=== PATIENT | female | born 1930 | race Caucasian/White ===

== ENCOUNTER 2016-05-22 04:44 | Emergency (ER) | payer MEDICARE ==
[2016-05-22] MEDS ORDERED: Ondansetron INJ* 2 MG/ML VIAL IV ONE ×2 (05:31→08:11)
[2016-05-22] MEDS ORDERED: NS 0.9% 1000 ML* 1,000 ML IV ONE (05:31)
[2016-05-22 05:47] LABS: Comments Flag Yes; Hematocrit 42 % (35-47); Hemoglobin 14.1 g/dl (12.0-16.0); Mean Corpuscular HGB Conc 33 g/dl (31-36); Mean Corpuscular Hemoglobin 31 pg (27-31); Mean Corpuscular Volume 93 fL (80-97); Mean Platelet Volume 11 um3 (7.4-10.4); Red Blood Count 4.54 10^6/ul (4.0-5.4); Red Cell Distribution Width 13 % (10.5-15); White Blood Count 5.4 10^3/ul (3.5-10.8)
[2016-05-22 05:49] LABS: Add Diff/Slide Review? Slide Review Added
[2016-05-22 05:51] LABS: Urine Bilirubin Negative (Negative); Urine Glucose Negative (Negative); Urine Nitrite Negative (Negative)
[2016-05-22 06:02] LABS: ALT 24 U/L (7-52); Albumin 4.2 g/dL (3.2-5.2); Alkaline Phosphatase 62 U/L (34-104); BUN/Creatinine Ratio 20.5 (8-20); Blood Urea Nitrogen 17 mg/dL (6-24); CO2 Carbon Dioxide 24 mmol/L (22-32); Calcium 9.8 mg/dL (8.6-10.3); Chloride 102 mmol/L (101-111); EGFR Non-African American 65.3 (>60); Globulin 3.5 g/dL (2-4); Glucose 114 mg/dL (70-100); Sodium 135 mmol/L (133-145); Total Protein 7.7 g/dL (6.4-8.9)
[2016-05-22] MEDS ORDERED: Meclizine TAB* 12.5 MG PO ONE ×2 (06:32→08:11)
--- NOTE | 2016-05-22 06:32 | ED ---
Charlie Trevino Adam, scribed for Serafin Welsh MD on 05/22/16 at 0453 . Dizziness - HPI Summary HPI Summary: Pt is an 85 year old female presenting with dizziness which she believes is due to vertigo. The dizziness set on suddenly at 03:00 this morning. The pt states that she has had vertigo before but has never taken medicine for it. She states that she has done exercises to balance the fluids in her ears. Her last episode of vertigo was 2 years ago and she believes that she has it again now. Pt also c /o nausea associated with the dizziness. - History Of Current Complaint Stated Complaint: VERTIGO Hx Obtained From: Patient Onset/Duration: Suddenly Timing: Constant Severity Initially: Moderate Severity Currently: Moderate Character: Dizzy Aggravating Factor(s): Position Change Alleviating Factor(s): Nothing Associated Signs And Symptoms: Positive: Nausea - Allergies/Home Medications Allergies/Adverse Reactions: Allergies Allergy/AdvReac Type Severity Reaction Status Date / Time Penicillin G Allergy Intermediate Swelling Verified 10/27/14 18:00 PMH/Surg Hx/FS Hx/Imm Hx Endocrine/Hematology History: Denies: Hx Diabetes, Hx Sickle Cell Disease, Hx Thyroid Disease Cardiovascular History: Denies: Hx Hypertension Respiratory History: Denies: Hx Asthma, Hx Chronic Obstructive Pulmonary Disease (COPD), Other Respiratory Problems/Disorders GI History: Denies: Hx Ulcer, Other GI Disorders History: Denies: Other Problems/Disorders Musculoskeletal History: Reports: Hx Arthritis - FINGERS Sensory History: Reports: Hx Cataracts, Hx Contacts or Glasses Denies: Hx Hearing Aid Opthamlomology History: Reports: Hx Cataracts, Hx Contacts or Glasses Psychiatric History: Reports: Hx Anxiety - OCCASSIONALLY NO MEDICATION, Hx Depression - NO MEDICATION, ONLY OCCASSIONALLY NOT CHRONIC - Surgical History Surgery Procedure, Year, and Place: APPENDIX- 13 YRS OLD. LEFT EAR PINNED - 22 YRS OLD. WRIST SURGERY - 15 YRS AGO Hx Anesthesia Reactions: No - N/V WITH APPENDIX SURGERY DUE TO GAS Infectious Disease History: Denies: Hx Hepatitis, Hx Human Immunodeficiency Virus (HIV), History Other Infectious Disease - Family History Known Family History: Positive: Other - Negative: malignant hyperthermia, anesthesia reaction - Social History Occupation: Retired Lives: With Family - Same sex partner Alcohol Use: Occasionally Alcohol Amount: glas of wine about 7 times a month Hx Substance Use: No Substance Use Type: Reports: None Hx Tobacco Use: Yes Smoking Status (MU): Former Smoker Type: Cigarettes Have You Smoked in the Last Year: No Review of Systems Positive: Nausea Neurological: Other - Dizziness All Other Systems Reviewed And Are Negative: Yes Physical Exam Triage Information Reviewed: Yes Vital Signs On Initial Exam: Initial Vitals Temp Pulse Resp BP Pulse Ox 98.1 F 55 19 159/79 100 05/22/16 04:50 05/22/16 04:50 05/22/16 04:50 05/22/16 04:50 05/22/16 04:50 Vital Signs Reviewed: Yes Appearance: Positive: No Pain Distress, Thin Skin: Positive: Warm Eyes: Positive: EOMI, [place], Other: - no nystagmus ENT: Positive: Normal ENT inspection, Hearing grossly normal Neck: Positive: Supple Respiratory/Lung Sounds: Positive: Clear to Auscultation Cardiovascular: Positive: RRR Abdomen Description: Positive: Nontender, Soft Musculoskeletal: Positive: Strength/ROM Intact Neurological: Positive: Alert, Oriented to Person Place, Time Diagnostics - Vital Signs Vital Signs Temp Pulse Resp BP Pulse Ox 05/22/16 06:00 53 16 171/63 100 05/22/16 05:36 54 18 100 05/22/16 04:50 98.1 F 55 19 159/79 100 - Laboratory Lab Results: Lab Results 05/22/16 05/22/16 05/22/16 Range/Units 05:10 05:10 05:10 WBC 5.4 (3.5-10.8) 10^3/ul RBC 4.54 (4.0-5.4) 10^6/ul Hgb 14.1 (12.0-16.0) g/dl Hct 42 (35-47) % MCV 93 (80-97) fL MCH 31 (27-31) pg MCHC 33 (31-36) g/dl RDW 13 (10.5-15) % Plt Count 129 L (150-450) 10^3/ul MPV 11 H (7.4-10.4) um3 Neut % (Auto) 75.0 (38-83) % Lymph % (Auto) 13.0 L (25-47) % [place] % (Auto) 9.0 (1-9) % Eos % (Auto) 1.9 (0-6) % Baso % (Auto) 1.1 (0-2) % Absolute Neuts (auto) 4.0 (1.5-7.7) 10^3/ul Absolute Lymphs (auto) 0.7 L (1.0-4.8) 10^3/ul Absolute Monos (auto) 0.5 (0-0.8) 10^3/ul Absolute Eos (auto) 0.1 (0-0.6) 10^3/ul Absolute Basos (auto) 0.1 (0-0.2) 10^3/ul Absolute Nucleated RBC 0.01 10^3/ul Nucleated RBC % 0.1 Sodium 135 (133-145) mmol/L Potassium TNP Chloride 102 (101-111) mmol/L Carbon Dioxide 24 (22-32) mmol/L Anion Gap TNP BUN 17 (6-24) mg/dL Creatinine 0.83 (0.51-0.95) mg/dL Est GFR ( Amer) 84.0 (>60) Est GFR (Non-Af Amer) 65.3 (>60) BUN/Creatinine Ratio 20.5 H (8-20) Glucose 114 H (70-100) mg/dL Calcium 9.8 (8.6-10.3) mg/dL Magnesium TNP Total Bilirubin 0.50 (0.2-1.0) mg/dL AST TNP ALT 24 (7-52) U/L Alkaline Phosphatase 62 (34-104) U/L Troponin I 0.00 (<0.04) ng/mL Total Protein 7.7 (6.4-8.9) g/dL Albumin 4.2 (3.2-5.2) g/dL Globulin 3.5 (2-4) g/dL Albumin/Globulin Ratio 1.2 (1-3) Urine Color Straw Urine Appearance Clear Urine pH 8.0 (5-9) Ur Specific [place] 1.008 L (1.010-1.030) Urine Protein Negative (Negative) Urine Ketones Trace H (Negative) Urine Blood Negative (Negative) Urine Nitrate Negative (Negative) Urine Bilirubin Negative (Negative) Urine Urobilinogen Negative (Negative) Ur Leukocyte Esterase Negative (Negative) Urine Glucose Negative (Negative) Urine Ascorbic Acid * H (Negative) Result Diagrams: 05/22/16 05:10 05/22/16 05:10 Lab Statement: Any lab studies that have been ordered have been reviewed, and results considered in the medical decision making process. - EKG 05:21 Cardiac Rate: Bradycardia - 52 BPM EKG Rhythm: Sinus Bradycardia Re-Evaluation - Re-Evaluation First Eval Change: Improved Dizzy Course/Dx - Diagnoses Provider Diagnoses: Vertigo Discharge - Discharge Plan Condition: Improved Disposition: HOME Prescriptions: Meclizine TAB* [Antivert 12.5 TAB*] 25 mg PO TID #14 tab The documentation as recorded by the Charlie garay Adam accurately reflects the service I personally performed and the decisions made by me, Serafin Welsh MD.
[2016-05-22 07:36] LABS: Magnesium 1.9 mg/dL (1.9-2.7)
[2016-05-22 09:59] VITALS: BP 140/56
== END 2016-05-22 09:57 | disposition home or self-care (01) ==
LOC: ED 04:44
DX: R42 Dizziness and giddiness (principal); R11.0 Nausea; Z87.891 Personal history of nicotine dependence
CPT/HCPCS: 36415; 80053; 81003; 83735; 84484; 85025; 93005; 96374; 96375; 99283; A9270-GY; J2405

== ENCOUNTER 2017-03-11 07:07 | Observation (INO) | payer MEDICARE ==
[2017-03-11 08:42] LABS: ABS Basophils 0 10^3/ul (0-0.2); ABS Eosinophils 0 10^3/ul (0-0.6); ABS Lymphocytes 0.4 10^3/ul (1.0-4.8); ABS Monocytes 0.6 10^3/ul (0-0.8); ABS Neutrophils 5.9 10^3/ul (1.5-7.7); ABS Nucleated RBC 0.04 10^3/ul; Eosinophil % 0.6 % (0-6); Hematocrit 40 % (35-47); Hemoglobin 13.7 g/dl (12.0-16.0); Lymphocyte % 6.2 % (25-47); Mean Corpuscular HGB Conc 34 g/dl (31-36); Mean Corpuscular Hemoglobin 32 pg (27-31); Mean Corpuscular Volume 94 fL (80-97); Mean Platelet Volume 10 um3 (7.4-10.4); Nucleated Red Blood Cells % 0.6; Platelet Count 141 10^3/ul (150-450); Red Blood Count 4.26 10^6/ul (4.0-5.4); Red Cell Distribution Width 14 % (10.5-15)
[2017-03-11 08:48] LABS: Urine Appearance Clear; Urine Blood Negative (Negative); Urine Color Straw; Urine Ketones Negative (Negative); Urine Protein Negative (Negative); Urine Specific Gravity 1.003 (1.010-1.030); Urine Urobilinogen Negative (Negative)
[2017-03-11 08:55] LABS: INR 0.86 (0.77-1.02)
[2017-03-11 08:56] LABS: EGFR Non-African American 79.3 (>60)
--- NOTE | 2017-03-11 09:08 | RAD ---
INDICATION: Fall and vertigo COMPARISON: CT of the brain January 14, 2014 TECHNIQUE: Contiguous axial sections of the brain were obtained from the skull base to the vertex without contrast. FINDINGS: The ventricles, cisterns and sulci mild involutional changes similar in appearance to the prior CT examination. There is mild periventricular and subcortical white matter hypoattenuation most consistent with mild chronic microvascular disease. The ambriz-white matter differentiation is adequately maintained and there is no sulcal effacement. No significant focal abnormality or mass effect is present. There is no evidence for intracranial hemorrhage. No significant focal osseous abnormality is present. The visualized portion of the paranasal sinuses and mastoid air cells appear clear. IMPRESSION: Chronic findings described above without acute intracranial hemorrhage or calvarial fracture.
--- NOTE | 2017-03-11 09:15 | RAD ---
INDICATION: Fell and struck head. Chronic low back pain at baseline with increased RIGHT lower back and hip pain post fall. COMPARISON: June 13, 2016 CT abdomen pelvis and January 14, 2014 chest radiograph. November 21, 2006 chest radiograph. TECHNIQUE: Multidetector CT images were obtained from the lung apices to the ischial tuberosities without contrast. Multiplanar bone algorithm reformatted images of the thoracic and lumbar sacral spine. Assessment of the viscera limited without contrast. CHEST REPORT: Panlobular emphysema. Mild foci of predominant basilar bilateral pleural-parenchymal scarring. 3 mm noncalcified nodule RIGHT upper lobe image 17. Negative for pleural effusion or pneumothorax. Negative for mediastinal hematoma, thoracic lymphadenopathy, or cardiomegaly. Physiologic small volume of pericardial fluid. Normal diameter thoracic aorta with calcific plaque. Coronary artery calcifications. Moderate anterior and middle column compression deformity of the T8 vertebral body while new compared with the prior chest radiograph appears chronic without discrete cortical disruption or gross trabecular impaction. No acute thoracic fractures evident. Increased thoracic kyphosis. CHEST IMPRESSION: 1. No acute traumatic thoracic injury evident. 2. Advanced emphysema. Noted 3 mm nodule at the RIGHT upper lobe is relatively low suspicion given small size. Consider reassessment with noncontrast CT in 6 months. ABDOMEN PELVIS REPORT: No CT abnormality of the unenhanced liver, gallbladder, pancreas, or spleen. No CT abnormality of the upper GI or small bowel evident. While the appendix is not discretely visualized, there is no inflammatory change in the right lower quadrant or region of the tip of the cecum to suggest presence of an acute inflammatory process. Colonic diverticulosis most marked at the RIGHT colon without findings of acute diverticulitis. Negative for ascites, free air, Unremarkable adrenal glands. Normal variant extrarenal pelves. Negative for hydronephrosis, urolithiasis, or focal renal lesions. No suspicious finding along the course of the ureters. Unremarkable partially distended urinary bladder. Uterus appears atrophic. Unremarkable adnexal regions. Negative for lymphadenopathy. Atherosclerotic plaque of normal diameter abdominal aorta and iliac arteries. Negative for retroperitoneal or superficial soft tissue hematoma. Mild acute appearing predominant anterior greater than the middle column osteoporotic compression fracture at L1 involving the inferior endplate. Approximate 2 mm retropulsion of the middle column without resulting central canal stenosis. No paravertebral hematoma evident. No additional fractures of the lumbar sacral spine, pelvis, or proximal femurs evident. 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 Disc space narrowing is severe at L5-S1. Mild bilateral foraminal stenosis at L5-S1. ABDOMEN PELVIS IMPRESSION: 1. No evidence for traumatic abdominal pelvic visceral injury within limits of noncontrast CT. 2. Mild acute appearing predominant anterior greater than the middle column osteoporotic compression fracture at L1 involving the inferior endplate. Approximate 2 mm retropulsion of the middle column without resulting central canal stenosis. No paravertebral hematoma evident. No additional fractures of the lumbar sacral spine, pelvis, or proximal femurs evident. Results discussed with Dr. Conroy 03/11/2017 9:10 AM EST
[2017-03-11] MEDS: NS 0.9% 1000 ML* 1,000 ML IV SCH ×2 (10:00→18:44)
--- NOTE | 2017-03-11 10:21 | RAD ---
Indication: Right fourth finger injury. 3 views of the right fifth finger demonstrates question of a nondisplaced fracture through the midportion of the distal phalanx of the fourth digit. Soft tissue swelling at the proximal interphalangeal joint is noted. IMPRESSION: Question of a nondisplaced fracture in the distal phalanx of the ring finger. Clinical correlation is suggested.
--- NOTE | 2017-03-11 11:54 | RAD ---
Indication: Fall with L1 compression fracture. Comparison: March 11, 2017 CT. Technique: Standing AP and lateral views lumbar sacral spine. Report: Mild anterior and middle column compression deformity at L1 with approximate 30% loss of height at the anterior column appears unchanged compared with the CT of the same date. No additional fractures evident. Normal lumbar lordosis. Slight RIGHT convex curve centered at L1. Unremarkable paravertebral soft tissue contours. IMPRESSION: Mild anterior and middle column compression deformity at L1 with approximate 30% loss of height at the anterior column appears unchanged compared with the CT of the same date.
[2017-03-11] MEDS ORDERED: Ibuprofen TAB* 200 MG PO ONE (14:00)
[2017-03-11] MEDS ORDERED: Ibuprofen TAB* 600 MG PO PRN (14:26)
[2017-03-11] MEDS ORDERED: traMADol TAB* 50 MG PO PRN (14:27)
[2017-03-11] MEDS ORDERED: oxyCODONE/Acetamin 5/325 MG* TAB PO PRN (14:27)
[2017-03-11] MEDS ORDERED: Senna TAB PO PRN (14:31)
[2017-03-11] MEDS ORDERED: Bisacodyl SUPP* 10 MG SUPP PR PRN (14:32)
[2017-03-11] MEDS ORDERED: Docusate CAP* 100 MG PO PRN (14:32)
[2017-03-11] MEDS: traMADol TAB* 50 MG PO PRN (16:51)
[2017-03-11] MEDS: Sulfamethox/Trimethoprim DS 800/160* TAB PO SCH ×2 (16:51→20:47)
--- NOTE | 2017-03-11 18:26 | ED ---
Lonnie Trevino Abhishek, scribed for Sven Conroy MD on 03/11/17 at 0758 . Complex/Multi-Sys Presentation - HPI Summary HPI Summary: This patient is a 86 year old F presenting to [facility] accompanied by female with a c/o of back pain, hip pain and hand pain s/p fall since 0430 today (03/11/17) . Patient is A/O times 3. The mechanism of injury as described by the patient was a fall on the right side in the kitchen from a standing height (no ambulation) when turning to the sink. The fall was also described as sudden and straight down. Pt has pertinent PMHx of vertigo and back pain (pt has a back brace). Pt had taken ibuprofen at 0500. The patient rates the pain 10/10 in severity. Symptoms aggravated by nothing. Symptoms alleviated by ibuprofen. Patient reports vertigo, ecchymosis on her left hand (ring finger), and dehydration. Patient denies LOC, dizziness, room spinning, and syncope, Other medications the Pt also takes are enzymes for digestion, and electrolytes. - History Of Current Complaint Chief Complaint: EDExtremityUpper Hx Obtained From: Patient, Family/Dispute Specialist Onset/Duration: Sudden Onset - hip pain/hand pain/back pain s/p fall at 0430 today (03/11/17) Severity Currently: Severe Severity Initially: Severe Location: Pain At: - hip, back and hand s/p fall Aggravating Factor(s): nothing Alleviating Factor(s): nothing Associated Signs And Symptoms: Positive: Edema, Back Pain, Other - Vertigo and Negative room spinning. Negative: Dizziness, Syncope - Allergies/Home Medications Allergies/Adverse Reactions: Allergies Allergy/AdvReac Type Severity Reaction Status Date / Time Penicillin G Allergy Intermediate Swelling Verified 06/13/16 09:51 PMH/Surg Hx/FS Hx/Imm Hx Endocrine/Hematology History: Denies: Hx Diabetes, Hx Sickle Cell Disease, Hx Thyroid Disease Cardiovascular History: Denies: Hx Hypertension Respiratory History: Denies: Hx Asthma, Hx Chronic Obstructive Pulmonary Disease (COPD), Other Respiratory Problems/Disorders GI History: Denies: Hx Ulcer, Other GI Disorders History: Denies: Other Problems/Disorders Musculoskeletal History: Reports: Hx Arthritis - FINGERS Sensory History: Reports: Hx Cataracts, Hx Contacts or Glasses Denies: Hx Hearing Aid Opthamlomology History: Reports: Hx Cataracts, Hx Contacts or Glasses Psychiatric History: Reports: Hx Anxiety - OCCASSIONALLY NO MEDICATION, Hx Depression - NO MEDICATION, ONLY OCCASSIONALLY NOT CHRONIC - Surgical History Surgery Procedure, Year, and Place: APPENDIX- 13 YRS OLD. LEFT EAR PINNED - 22 YRS OLD. WRIST SURGERY - 15 YRS AGO. BILAT CATERACTS Hx Anesthesia Reactions: No - N/V WITH APPENDIX SURGERY DUE TO GAS Infectious Disease History: No Infectious Disease History: Denies: Hx Hepatitis, Hx Human Immunodeficiency Virus (HIV), History Other Infectious Disease, Traveled Outside the [place] in Last 30 Days - Family History Known Family History: Positive: Cardiac Disease, Other - Negative: malignant hyperthermia, anesthesia reaction Negative: Diabetes - Social History Occupation: Retired Lives: With Family - With partner Alcohol Use: Rare Alcohol Amount: glas of wine about 7 times a month Hx Substance Use: No Substance Use Type: Reports: None Hx Tobacco Use: Yes Smoking Status (MU): Former Smoker Type: Cigarettes Amount Used/How Often: dates are estimates Have You Smoked in the Last Year: No Review of Systems Constitutional: Negative Eyes: Negative ENT: Negative Cardiovascular: Negative Respiratory: Negative Gastrointestinal: Negative Genitourinary: Negative Positive: Myalgia - hip, hand and back pain s/p fall Positive: Bruising - left hand ("ring finger") Neurological: Other - Vertigo. Negative dizziness, and room spinning Negative: Syncope Psychological: Normal All Other Systems Reviewed And Are Negative: Yes Physical Exam - Summary Physical Exam Summary: General: well-appearing, no pain distress Skin: warm, color reflects adequate perfusion, dry, ecchymosis on the distal right 4th finger Head: normal Eyes: EOMI, [place] ENT: normal Neck: supple, nontender Respiratory: CTA, breath sounds present Cardiovascular: RRR Abdomen: soft, nontender Bowel: present Musculoskeletal: Lower back facer to palpation, and right posterior chest tender to palpation. Neurological: normal, sensory/motor intact, A&O x3 Psychological: affect/mood appropriate Triage Information Reviewed: Yes Vital Signs On Initial Exam: Initial Vitals Temp Pulse Resp BP Pulse Ox 98.7 F 60 16 158/85 99 03/11/17 07:12 03/11/17 07:12 03/11/17 07:12 03/11/17 07:12 03/11/17 07:12 Vital Signs Reviewed: Yes - [place] Coma Scale Coma Scale Total: 15 Diagnostics - Vital Signs Vital Signs Temp Pulse Resp BP Pulse Ox 03/11/17 07:12 98.7 F 60 16 158/85 99 - Laboratory Lab Results: Lab Results 03/11/17 03/11/17 03/11/17 Range/Units 08:15 08:31 08:31 WBC (3.5-10.8) 10^3/ul RBC (4.0-5.4) 10^6/ul Hgb (12.0-16.0) g/dl Hct (35-47) % MCV (80-97) fL MCH (27-31) pg MCHC (31-36) g/dl RDW (10.5-15) % Plt Count (150-450) 10^3/ul MPV (7.4-10.4) um3 Neut % (Auto) (38-83) % Lymph % (Auto) (25-47) % [place] % (Auto) (1-9) % Eos % (Auto) (0-6) % Baso % (Auto) (0-2) % Absolute Neuts (auto) (1.5-7.7) 10^3/ul Absolute Lymphs (auto) (1.0-4.8) 10^3/ul Absolute Monos (auto) (0-0.8) 10^3/ul Absolute Eos (auto) (0-0.6) 10^3/ul Absolute Basos (auto) (0-0.2) 10^3/ul Absolute Nucleated RBC 10^3/ul Nucleated RBC % INR (Anticoag Therapy) (0.77-1.02) APTT (26.0-36.3) seconds Sodium 135 (133-145) mmol/L Potassium 3.5 (3.5-5.0) mmol/L Chloride 98 L (101-111) mmol/L Carbon Dioxide 30 (22-32) mmol/L Anion Gap 7 (2-11) mmol/L BUN 16 (6-24) mg/dL Creatinine 0.70 (0.51-0.95) mg/dL Est GFR ( Amer) 102.0 (>60) Est GFR (Non-Af Amer) 79.3 (>60) BUN/Creatinine Ratio 22.9 H (8-20) Glucose 87 (70-100) mg/dL Lactic Acid (0.5-2.0) mmol/L Calcium 9.9 (8.6-10.3) mg/dL Magnesium 2.1 (1.9-2.7) mg/dL Total Bilirubin 0.50 (0.2-1.0) mg/dL AST 30 (13-39) U/L ALT 32 (7-52) U/L Alkaline Phosphatase 84 (34-104) U/L Troponin I 0.00 (<0.04) ng/mL C-Reactive Protein 18.49 H (< 5.00) mg/L B-Natriuretic Peptide 192 H ( - 100) pg/mL Total Protein 6.8 (6.4-8.9) g/dL Albumin 3.7 (3.2-5.2) g/dL Globulin 3.1 (2-4) g/dL Albumin/Globulin Ratio 1.2 (1-3) Lipase 178 H (11.0-82.0) U/L TSH 1.88 (0.34-5.60) mcIU/mL Urine Color Straw Urine Appearance Clear Urine pH 7.0 (5-9) Ur Specific [place] 1.003 L (1.010-1.030) Urine Protein Negative (Negative) Urine Ketones Negative (Negative) Urine Blood Negative (Negative) Urine Nitrate Negative (Negative) Urine Bilirubin Negative (Negative) Urine Urobilinogen Negative (Negative) Ur Leukocyte Esterase 3+ H (Negative) Urine WBC (Auto) 3+(>20/hpf) H (Absent) Urine RBC (Auto) 1+(3-5/hpf) H (Absent) Urine Bacteria 2+ H (Absent) Urine Glucose Negative (Negative) 03/11/17 03/11/17 03/11/17 Range/Units 08:31 08:31 08:34 WBC 7.0 (3.5-10.8) 10^3/ul RBC 4.26 (4.0-5.4) 10^6/ul Hgb 13.7 (12.0-16.0) g/dl Hct 40 (35-47) % MCV 94 (80-97) fL MCH 32 H (27-31) pg MCHC 34 (31-36) g/dl RDW 14 (10.5-15) % Plt Count 141 L (150-450) 10^3/ul MPV 10 (7.4-10.4) um3 Neut % (Auto) 84.7 H (38-83) % Lymph % (Auto) 6.2 L (25-47) % [place] % (Auto) 8.1 (1-9) % Eos % (Auto) 0.6 (0-6) % Baso % (Auto) 0.4 (0-2) % Absolute Neuts (auto) 5.9 (1.5-7.7) 10^3/ul Absolute Lymphs (auto) 0.4 L (1.0-4.8) 10^3/ul Absolute Monos (auto) 0.6 (0-0.8) 10^3/ul Absolute Eos (auto) 0 (0-0.6) 10^3/ul Absolute Basos (auto) 0 (0-0.2) 10^3/ul Absolute Nucleated RBC 0.04 10^3/ul Nucleated RBC % 0.6 INR (Anticoag Therapy) 0.86 (0.77-1.02) APTT 23.6 L (26.0-36.3) seconds Sodium (133-145) mmol/L Potassium (3.5-5.0) mmol/L Chloride (101-111) mmol/L Carbon Dioxide (22-32) mmol/L Anion Gap (2-11) mmol/L BUN (6-24) mg/dL Creatinine (0.51-0.95) mg/dL Est GFR ( Amer) (>60) Est GFR (Non-Af Amer) (>60) BUN/Creatinine Ratio (8-20) Glucose (70-100) mg/dL Lactic Acid 0.6 (0.5-2.0) mmol/L Calcium (8.6-10.3) mg/dL Magnesium (1.9-2.7) mg/dL Total Bilirubin (0.2-1.0) mg/dL AST (13-39) U/L ALT (7-52) U/L Alkaline Phosphatase (34-104) U/L Troponin I (<0.04) ng/mL C-Reactive Protein (< 5.00) mg/L B-Natriuretic Peptide ( - 100) pg/mL Total Protein (6.4-8.9) g/dL Albumin (3.2-5.2) g/dL Globulin (2-4) g/dL Albumin/Globulin Ratio (1-3) Lipase (11.0-82.0) U/L TSH (0.34-5.60) mcIU/mL Urine Color Urine Appearance Urine pH (5-9) Ur Specific [place] (1.010-1.030) Urine Protein (Negative) Urine Ketones (Negative) Urine Blood (Negative) Urine Nitrate (Negative) Urine Bilirubin (Negative) Urine Urobilinogen (Negative) Ur Leukocyte Esterase (Negative) Urine WBC (Auto) (Absent) Urine RBC (Auto) (Absent) Urine Bacteria (Absent) Urine Glucose (Negative) Result Diagrams: 03/11/17 08:34 03/11/17 08:31 Lab Statement: Any lab studies that have been ordered have been reviewed, and results considered in the medical decision making process. - Radiology Finger X-ray Radiology Interpretation Completed By: Radiologist - Finger X ray reveals Question of a nondisplaced fracture in the distal phalanx of the ring finger. Clinical correlation is suggested. ED physician has reviewed this radiology report. Lumbar Spine X-ray Radiology Interpretation Completed By: Radiologist - Lumbar Spine X-ray Mild anterior and middle column compression deformity at L1 with approximate 30% loss of height at the anterior column appears unchanged compared with the CT of the same date. ED physician reviewed the radiology report. - CT Chest A/P CT CT Interpretation Completed By: Radiologist - Chest A/P Ct reveals Chest impression 1. No acute traumatic thoracic injury evident. 2. Advanced emphysema. Noted 3 mm nodule at the RIGHT upper lobe is relatively low suspicion given small size. Consider reassessment with noncontrast CT in 6 months. 1. No evidence for traumatic abdominal pelvic visceral injury within limits of noncontrast CT. 2. Mild acute appearing predominant anterior greater than the middle column osteoporotic compression fracture at L1 involving the inferior endplate. Approximate 2 mm retropulsion of the middle column without resulting central canal stenosis. No paravertebral hematoma evident. No additional fractures of the lumbar sacral spine, pelvis, or proximal femurs evident. ED physician has reviewed this radiology report. Brain CT CT Interpretation Completed By: Radiologist - Brain CT Reveals Chronic findings described above without acute intracranial hemorrhage or calvarial fracture. ED physician has reviewed this radiology report. Complex Multi-Symp Course/Dx Course Of Treatment: DISCUSSED WITH NEUROSURGERY, DR SANCHEZ. PATIENT NOT TOLERATING BACK PAIN; ADMIT HOSPITALIST. - Diagnoses Provider Diagnoses: Compression fracture of L1 lumbar vertebra, Fracture of phalanx of right ring finger Discharge - Discharge Plan Condition: Stable Disposition: ADMITTED TO [facility] The documentation as recorded by the Lonnie garay Abhishek accurately reflects the service I personally performed and the decisions made by me, Sven Conroy MD.
[2017-03-11] MEDS: Heparin VIAL(*) 5000 UNITS/ML VIAL (FIVE THOUSAND) SUBCUT SCH (20:48)
--- NOTE | 2017-03-11 22:15 | HP ---
CC: Dr. Good * [facility] MEDICINE HISTORY AND PHYSICAL: DATE OF ADMISSION: 03/11/17 PRIMARY CARE PROVIDER: Dr. Good. ATTENDING PHYSICIAN: Sandro Guerrero MD * (dictation provided by Lizzeth Cueva NP) CHIEF COMPLAINT: Low back pain. HISTORY OF PRESENT ILLNESS: Ms. Black is an 86-year-old female with a past medical history of intermittent vertigo, scoliosis with intermittent back pain, urinary incontinence, and PACs who presented to the hospital today after a fall at home with back pain. Ms. Black states that she strained her back about 3 months ago. She had recovered somewhat from that and started to do pelvic floor physical therapy for urinary incontinence. She has seen pelvic floor PT about 3 to 4 times. After her last visit, she was working on her Kegel exercises and developed low back pain again. She states the pain has been quite significant. She has been taking ibuprofen at 200 to 400 mg p.o. q. 6 hours p.r.n. with some minimal improvement in the pain. This morning, at about 4:30 a.m., she got up to take ibuprofen. She was standing at the sink when she suddenly found herself on the ground. She is not sure exactly why she fell. She denies losing consciousness. She landed on her right side and had immediate pain in her back and in her right hand. She denies any recent fevers , chills, cough, chest pain, or shortness of breath. She has had urinary incontinence with about 2 to 3 episodes per day. She describes an urge incontinence. She had not noticed any dysuria or new worsening frequency. She has noticed some lower extremity swelling, which has been going on for several months. She has had some lower abdominal discomfort and had workup with Dr. Good and Dr. Russo from [facility]. Dr. Russo felt that her discomfort was related to constipation. She has been using suppositories intermittently for that as well as magnesium citrate. In the emergency room, Ms. Black had multiple imaging studies which all showed that she had an L1 compression fracture and a right ring finger nondisplaced fracture. Her labs were unremarkable except to show that she likely has a urinary tract infection with 3+ leuk esterase and 2+ bacteria. Her vitals were stable. PAST MEDICAL HISTORY: 1. Vertigo status post vestibular therapy with improvement. 2. Scoliosis with chronic back pain. 3. Urinary incontinence, likely urge. 4. Balance issues related to vertigo. 5. History of frequent UTIs. 6. Right wrist fracture with pinning. 7. History of PACs. 8. Diverticulosis. MEDICATIONS: The patient states she takes supplements only and they are vitamin C, vitamin D, B12, B complex, vitamin E, and magnesium. She is also a vegetarian. ALLERGIES: PENICILLIN G. FAMILY HISTORY: Mother of heart disease. Father of an aneurysm. SOCIAL HISTORY: The patient states she smoked about 10 years and quit at age 30. She denies any alcohol or drug use. She lives with her partner, Ed, who is the healthcare proxy. REVIEW OF SYSTEMS: A 14-point review of systems was completed with Ms. Black and all those not mentioned above were negative. PHYSICAL EXAMINATION GENERAL: Ms. Black is lying in the bed. She is in no acute distress. VITAL SIGNS: Temperature 98.7, pulse rate 69, respiratory rate 22, O2 saturation 98% on room air, blood pressure 152/79. LUNGS: Clear to auscultation bilaterally with no accessory muscle use and good aeration. HEART: S1, S2. No murmur, rub, or gallop, and regular. ABDOMEN: Soft, nontender with bowel sounds positive x4. EXTREMITIES: No cyanosis. Positive for trace to 1+ pitting edema in the ankles. NEURO: She is alert, she is oriented x3. She moves all extremities equally. There is no facial asymmetry or focal weakness. DTR are intact. Babinski intact bilaterally. Extraocular movements are intact. She has no tenderness to palpation over the lumbar or thoracic spine. DIAGNOSTIC STUDIES/LAB DATA: WBC 7.0, hemoglobin 13.7, hematocrit 40, and platelet count 141. INR 0.86. Sodium 135, potassium 3.5, chloride 98, serum bicarbonate 30, BUN 16, creatinine 0.70, glucose 87, troponin 0.00. CRP 18.49. BNP 192, lipase 178. IMAGING: CT brain is read as follows: "Chronic findings described above without acute intracranial hemorrhage or calvarial fracture." Cervical spine CT , chest, abdomen, pelvis CT, lumbar spine CT, thoracic spine CT, are summarized as follows: "No acute traumatic thoracic injury evident, advanced emphysema, noted 3 mm nodule at the right upper lobe. It is relatively low suspicion given small size. Consider reassessment with noncontrast CT in 6 months. No evidence for traumatic abdominal or pelvic visceral injury within limits of noncontrast CT. Mild acute appearing predominant anterior greater than middle column osteoporotic compression fracture at L1 involving the inferior endplate, approximately 2 mm retropulsion of the middle column without resulting central canal stenosis. No paravertebral hematoma evident. No additional fractures of the lumbosacral spine, pelvis, or proximal femurs are evident." Lumbar spine x- ray: "Mild anterior and middle column compression deformity at L1 with approximately 30% loss of height at the anterior column, appears unchanged compared with CT of the same date." ASSESSMENT AND PLAN: Ms. Black is an 86-year-old female with a past medical history of scoliosis with chronic back pain, intermittent vertigo, and urinary incontinence who presents today to hospital with concerns for fall and back pain found to have L1 compression fracture, right ring finger fracture, and likely urinary tract infection. Our plans are for observation in the hospital for the followin. Compression fracture with back pain: The patient is unable to ambulate in the emergency room. Our plans are to begin step-velázquez approach for her pain control. Plan to start with tramadol 50 mg and then increase to tramadol 100 mg and then to oxycodone with acetaminophen if needed. The patient will have physical therapy. The emergency room physicians did review the scan and plan with Dr. Martinez who recommend the patient could try a TLSO brace. I have spoken with [facility] orthotics and case management to order a brace today. 2. Urinary tract infection: The patient's UA shows positive leuk esterase and bacteria. Plan for Bactrim b.i.d. and to montor urine cultures. 3. Lower extremity edema: The patient had question about lower extremity edema , it is trace and has been chronic for several months at least. I explained to her this can be a feature of aging with venous insufficiency as well as diastolic heart failure and recommended that she will follow up with Dr. Good if she has any continued concerns about this. She is also recommended to elevate lower extremities and use compression stockings p.r.n. 4. Lower abdominal pain: The patient reports she has had some intermittent lower abdominal pain for at least 5 or 6 months, but seems like this has been going on for most of her life. She has seen Dr. Good and Dr. Russo from gastro -enterology at [place] . Dr. Good thought perhaps she had chronic pancreatitis. I do note that her lipase is elevated today and I am rechecking that in the a.m. Her LFTs are normal. I note that she has had mildly elevated lipase in the past as well. Her abdominal pain is actually described is in the lower abdomen along the right side. It is intermittent and seems to be more associated with constipation and bowel movements. Plan to obtain records from [place] from Dr. Russo and to follow up on the lipase as indicated. 5. DVT prophylaxis: Lovenox. 6. Code status is full code. TIME SPENT: Approximately 75 minutes was spent on the admission of this patient , more than half of that time was spent with the patient at bedside reviewing the events leading up to this hospitalization, performing the physical examination, and reviewing my plan of care. LIZZETH CUEVA NP [id number]/[facility] #: [id number] [place]
--- NOTE | 2017-03-12 02:03 | CONS ---
CONSULTATION REPORT: DATE OF CONSULT: 03/11/17 HISTORY OF PRESENT ILLNESS: The patient is a very pleasant 86-year-old female with history of anxiety, cataracts, and arthritis who was reported to have sustained a fall from a standing position yesterday. The patient reports that she did not lose consciousness. We have requested to see the patient by ED physician regarding CT scan finding consistent with possible anterior and medial column compression fracture of L1 without evidence of canal compromise. The patient reports that her back pain has significantly improved since her admission. She does have reports of fracture on the right 4th finger. The patient reports that she has a history of bladder incontinence, but no bowel incontinence. She denies any weakness, numbness, or tingling of the upper or lower extremities with the exception of chronic weakness on the lower extremities. She was diagnosed with previous thoracic compression fracture in the past and she reports that she had another fracture a couple of months ago when she was trying to lift some weight. History was obtained from the patient' s record, the patient herself, as well as a female friend of hers at the bedside. PAST MEDICAL HISTORY: History of anxiety, cataract, arthritis. PAST SURGICAL HISTORY: Appendectomy. MEDICATIONS: Not on home medication. ALLERGIES: PENICILLIN. SOCIAL HISTORY: Tobacco negative, the patient quit several years ago. Alcohol , negative. Recreational drug use, negative. The patient used to work as an artist. She lives with her female partner. PHYSICAL EXAMINATION: The patient is not in acute distress. She is awake, alert, oriented x3. Her pupils are equal and reactive. Cranial nerves II through XII are grossly intact. Motor 4-5/5 in all extremities. Sensory grossly intact to light touch. Deep tendon reflexes +1 bilaterally. No clonus. No Babinski. Homans' negative. Straight leg test negative in the supine position. The patient has no tenderness to palpation on cervical , thoracic, or lumbar spine. She has free range of motion of cervical spine. She does have significant kyphosis in the thoracic spine. DIAGNOSTIC STUDIES: The patient had a CT scan of the brain that does not reveal evidence of intracranial hemorrhage. The patient had a CT scan of the cervical spine, revealed degenerative disk disease without evidence of fracture or subluxation. The patient had a CT scan of the thoracic spine revealing old wedge compression fracture at T8 with significant kyphosis. The patient had a CT scan of the lumbar spine revealing possible anterior and medial column L1 compression fracture with questionable 2 mm retropulsion in the inferoposterior vertebral body edge. No evidence of posterior ligament complex involvement. The patient had upright x-rays that revealed similar findings on the lumbar spine with anterior wedge deformity at L1 with similar appearance with the CT findings. ASSESSMENT: She is a very pleasant 86-year-old female with reported fall and lumbar 1 anterior compression fracture. PLAN: The patient at this point has been doing quite well. She was able to ambulate with a walker and her pain is under control. Based on her imaging and the clinical presentation, we think conservative treatment will be the best option. We would suggest that the patient may benefit from a thoracolumbar orthosis if tolerated. The patient may follow up with her primary physician and we will be happy to see the patient in the office in 2 weeks with a new x-ray of lumbar spine if it is desired by her PCP. We would recommend osteoporosis management and fall precautions. Full instructions given to the patient and her friend. Thank you for allowing us to participate in the care of this patient. Please do not hesitate to contact our office in case if you have any questions or concerns regarding the care of this patient. Josh Martinez MD [id number]/[facility] #: [id number] MTDD
[2017-03-12] MEDS: NS 0.9% 1000 ML* 1,000 ML IV SCH (02:39)
[2017-03-12] MEDS: Heparin VIAL(*) 5000 UNITS/ML VIAL (FIVE THOUSAND) SUBCUT SCH ×3 (05:52→14:18)
--- NOTE | 2017-03-12 07:31 | PN ---
Subjective Date of Service: 03/12/17 Interval History: States that she is feeling better today. States that she did well with PT aqnd would like to return home. Reports that she has help at home. Would like to have hospital bed ordered for home. Objective Active Medications: Bisacodyl (Dulcolax Supp*) 10 mg WA DAILY PRN PRN Reason: CONSTIPATION Docusate Sodium (Colace Cap*) 100 mg PO DAILY PRN PRN Reason: CONSTIPATION Heparin Sodium (Porcine) (Heparin Vial(*)) 5,000 units SUBCUT Q8HR COUNTS INCLUDE 234 BEDS AT THE [facility] Last Admin: 03/12/17 05:59 Dose: 5,000 units Sodium Chloride (Ns 0.9% 1000 Ml*) 1,000 mls @ 150 mls/hr IV PER RATE COUNTS INCLUDE 234 BEDS AT THE [facility] Last Admin: 03/12/17 02:39 Dose: 150 mls/hr Ibuprofen (Motrin Tab*) 600 mg PO Q6H PRN PRN Reason: PAIN Last Admin: 03/11/17 14:35 Dose: 600 mg Oxycodone/Acetaminophen (Percocet 5/325 Tab*) 1 tab PO Q4H PRN PRN Reason: SEVERE PAIN Senna (Senokot Tab*) 1 tab PO BEDTIME PRN PRN Reason: CONSTIPATION Tramadol HCl (Ultram*) 50 mg PO Q6H PRN PRN Reason: PAIN Last Admin: 03/11/17 16:51 Dose: 50 mg Tramadol HCl (Ultram*) 100 mg PO Q6H PRN PRN Reason: moderate pain Trimethoprim/Sulfamethoxazole (Bactrim Ds 800/160 Tab*) 1 tab PO BID COUNTS INCLUDE 234 BEDS AT THE [facility] Last Admin: 03/11/17 20:47 Dose: 1 tab Vital Signs - 8 hr 03/11/17 03/12/17 23:41 03:40 Temperature 97.6 F 97.7 F Pulse Rate 53 61 Respiratory 16 16 Rate Blood Pressure 150/89 169/72 (mmHg) O2 Sat by Pulse 96 95 Oximetry Oxygen Devices in Use Now: None Appearance: awake and alert, appears comfortable sitting in the chair. Eyes: No Scleral Icterus Ears/Nose/Mouth/Throat: Clear Oropharnyx, Mucous Membranes Moist Neck: NL Appearance and Movements; NL JVP, Trachea Midline Respiratory: Symmetrical Chest Expansion and Respiratory Effort, Clear to Auscultation Cardiovascular: NL Sounds; No Murmurs; No JVD, No Edema Abdominal: NL Sounds; No Tenderness; No Distention Extremities: No Edema, No Clubbing, Cyanosis Skin: No Rash or Ulcers Neurological: Alert and Oriented x 3 Result Diagrams: 03/11/17 08:34 03/11/17 08:31 Additional Lab and Data: Lab Results Assess/Plan/Problems-Billing Assessment: This is an 86 y.o female that was admitted yesterday after a fall c/o lower back pain. patient was found to have l1 compression fracture to her back. She was seen by neurosurgery who has recommended a brace for comfort if tolerated. She was able to participate in PT this AM, ambulated with a wheeled walker. Contact guard is recommended for transferring and ambulating. - Patient Problems (1) Fall Status: Acute Comment: Use wheeled walker when ambulating have assistance as contact guard when ambulating and transferring when transitioning from lying to standing sit on the edge of the bed for a few minutes prior to walking PT in home consult (2) Lumbar compression fracture Status: Acute Code(s): S32.000A - WEDGE COMPRESSION FRACTURE OF UNSP LUMBAR VERTEBRA, INIT SNOMED Code(s): 763794917 Comment: wear brace if tolerated ambulate with wheeled walker contact guard when transferrring and ambulating PT for strenghtening and transferring training Tramadol as needed for pain managemant May also use tylenol or ibuprofen as needed for mild pain (3) UTI (urinary tract infection) Status: Acute Comment: Urine culture pending Follow up with primary care doctor for culture results Continue Bactrim as perscribed Status and Disposition: discharge to home, with caregiver and in home PT
[2017-03-12] MEDS: Sulfamethox/Trimethoprim DS 800/160* TAB PO SCH (08:06)
[2017-03-12] MEDS: traMADol TAB* 50 MG PO PRN (10:19)
[2017-03-12 15:11] VITALS: BP 182/71
--- NOTE | 2017-03-13 05:59 | DS ---
DISCHARGE SUMMARY: DATE OF ADMISSION: 03/11/17 DATE OF DISCHARGE: 03/12/17 PRIMARY CARE PROVIDER: Dr. Good. ATTENDING PHYSICIAN WHILE IN THE HOSPITAL: Radha Chery DO *(dictation provided by Cheryl Chowdary NP) PRIMARY DIAGNOSIS: L1 compression fracture, status post fall and low back pain. SECONDARY DIAGNOSES: 1. Vertigo, status post vestibular therapy with improvement. 2. Scoliosis with chronic back pain. 3. Urinary incontinence. 4. Balance issues related to vertigo. 5. History of frequent urinary tract infections. 6. Right wrist fracture and pinning history. 7. History of PACs. 8. Diverticulosis. MEDICATIONS: The patient states that she only takes supplements and they are vitamin C, vitamin D, B12, B complex, vitamin E and magnesium. HOSPITAL COURSE: Ms. Black is an 86-year-old female with past medical history of intermittent vertigo, scoliosis, and intermittent back pain, urinary incontinence, PACs, who presented to the hospital today after a fall at home with back pain. During her hospital course, she did have an x-ray that confirmed that she had an L1 compression fracture. Please refer to the dictated H and P from Lizzeth Cueva NP for complete details. She had several radiologic imaging while in the emergency room. CT of the head showed no acute intracranial hemorrhage or fracture. CT of the chest, impression: 1. There is no acute traumatic thoracic injury evident. 2. Advanced emphysema noted 3 mm nodule in the right upper lobe relatively low suspicion given the size consider reassessment with noncontrast CT in six months. CT of the abdomen, there is no evidence of traumatic abdominal pelvic versus pelvic within limits of the contrast CT, mild acute appearance, prominent anterior greater than the middle column osteoporotic compression fracture at L1 involving the inferior end plate approximately 2 mm retro protrusion in the mid column without resulting central canal stenosis. No paravertebral hematoma evident. No additional fractures of the lumbar sacral spine, pelvis or proximal femur is evident. X-ray of the right fourth finger shows a non- displaced distal phalanx fracture. Thoracic spine CT, no acute traumatic thoracic injury is evident. LABORATORY DATA: Lab work from 03/11, WBCs are 7, hemoglobin 13.7, hematocrit was 40, platelet count was 141. Chemistry, potassium is 3.5, chloride 98, BUN is 16, creatinine 0.70. Lipase was initially 178, repeat on the was 105. On 03/11/17, urine pH was 7.0, specific gravity was 1.003. Urine protein, ketones, blood, nitrites, urine bilirubin were all negative. Urine leukocyte esterase was 3+, urine wbc's were 3+, urine rbc's was 1+, bacteria was 2+, glucose was also negative. A culture is pending at this time. Patient was advised to follow up with physician regarding the urinary culture. PHYSICAL EXAMINATION: Vital Signs: Today, blood pressure was mildly elevated. Blood pressure was 165/73, heart rate was 57 to 74, O2 sat was 96%. Temp was 97.5. Appearance: The patient was found sitting in the chair. She is in no acute distress. She is alert and oriented. HEENT: Head is normocephalic, atraumatic. Mucous membranes are moist. Cardiac: S1, S2. Regular rate and rhythm. Lungs: Clear to auscultation bilaterally. Respirations are easy and even. Abdomen is soft and nontender. Bowel sounds are positive x4. She is able to move all extremities. HOSPITAL COURSE: Ms. Black was admitted to the medical floor. She was evaluated by PT today. She did very well with PT with contact guard and minimal assistance. She did walk with a wheeled walker. She is requiring pain medication for management of her lower back pain. She has no other complaints. She denies any fever or chills. She did have some nausea this morning after taking her Bactrim and taking the tramadol. She denies any diarrhea or vomiting. She denies any abdominal pain. She does state that she does have urge incontinence that she is currently doing PT for. Ms. Black is doing well today. She is ready to return home. She does live with her enforcement manager of many years, who is there to help her at home. She will follow up with her doctor, Dr. Agustin Good regarding her urinary culture. I have also ordered visiting physical therapy for continued therapy. She will be sent home on tramadol 50 mg p.o. q.6 hours as needed for pain. I have also given her a prescription for Bactrim DS. She will take one tablet b.i.d. for 7 days. This is to treat her urinary tract infection with pending culture results. She was advised to follow up with her physician again for her urinary culture results. Patient and family were advised that with transferring and walking with her wheeled walker, she needs to have assistance by her at all times. Family is aware. Dr. Martinez had recommended that she may benefit from a thoracolumbar orthosis if she tolerated. The patient was fitted for that today and that will be sent home with her. At the request of the family, the patient was ordered a hospital bed for her home. Ms. Black is medically stable for discharge home today and follow up with her primary physician in the next 4 to 7 days. She needs to continue her treatment for her urinary tract infection. We will also continue pain management for her lower back pain, status post fall and her L1 compression fracture. DISPOSITION: She will be discharged home. DIET: Vegetarian diet as tolerated. FOLLOWUP PLAN: She will follow up with Dr. Good. Urine cultures pending. I have reviewed this with the patient and her live-in enforcement manager. TIME SPENT: Approximately 60 minutes was spent on this discharge; more than half the time was spent with the patient at the bedside, reviewing the events leading up to this hospitalization, during the hospitalization, performing physical exam and reviewing my plan of care. CHERYL CHOWDARY, ZENAIDA [id number]/[facility] #: [id number] [place]
== END 2017-03-12 15:50 | disposition home or self-care (01) ==
LOC: ED 07:07 → MED 14:26
PROVIDERS: ADMIT Internal Medicine; ATTEND Internal Medicine
DX: S32.000A Wedge compression fracture of unspecified lumbar vertebra, initial encounter for closed fracture (principal); W18.30XA Fall on same level, unspecified, initial encounter; Y92.000 Kitchen of unspecified non-institutional (private) residence as the place of occurrence of the external cause; N39.0 Urinary tract infection, site not specified; R60.9 Edema, unspecified; R10.30 Lower abdominal pain, unspecified; R42 Dizziness and giddiness; M41.9 Scoliosis, unspecified; G89.29 Other chronic pain; I49.1 Atrial premature depolarization; K57.90 Diverticulosis of intestine, part unspecified, without perforation or abscess without bleeding; Z79.899 Other long term (current) drug therapy; Z87.891 Personal history of nicotine dependence; I44.4 Left anterior fascicular block
CPT/HCPCS: 36415; 70450; 71250; 72100; 72125; 72128; 72131; 73140; 74176; 80053; 81003; 81015; 83605; 83690; 83735; 83880; 84443; 84484; 85025; 85610; 85730; 86140; 87077; 87086; 87186; 93005; 96360; 96361; 99283; A9270-GY; G0378; G8978-GP-CI; G8979-GP-CH; J1644

== ENCOUNTER 2017-04-11 20:06 | Inpatient (IN) | payer MEDICARE ==
[2017-04-11] MEDS ORDERED: NS 0.9% 1000 ML* 1,000 ML IV ONE (20:25)
[2017-04-11 21:06] LABS: Hematocrit 44 % (35-47); Hemoglobin 15.2 g/dl (12.0-16.0); Mean Corpuscular HGB Conc 34 g/dl (31-36); Mean Corpuscular Hemoglobin 32 pg (27-31); Mean Corpuscular Volume 94 fL (80-97); Red Blood Count 4.74 10^6/ul (4.0-5.4); Red Cell Distribution Width 13 % (10.5-15); White Blood Count 5.5 10^3/ul (3.5-10.8)
[2017-04-11 21:23] LABS: ABS Basophils 0 10^3/ul (0-0.2); ABS Eosinophils 0 10^3/ul (0-0.6); ABS Lymphocytes 0.2 10^3/ul (1.0-4.8); ABS Monocytes 0.3 10^3/ul (0-0.8); ABS Neutrophils 4.9 10^3/ul (1.5-7.7); ABS Nucleated RBC 0 10^3/ul; Eosinophil % 0.1 % (0-6); Lymphocyte % 3.9 % (25-47); Mean Platelet Volume 10 um3 (7.4-10.4); Nucleated Red Blood Cells % 0.2; Platelet Count 127 10^3/ul (150-450)
--- NOTE | 2017-04-11 21:37 | RAD ---
Indication: Syncope. Single frontal view of the chest performed at 2052 hours was reviewed. Comparison is made with previous exam dated January 14, 2014. No mediastinal shift is noted. Heart is of normal size and configuration. Lung lara appear hyperinflated. Overall no changes noted since prior exam. IMPRESSION: NO ACTIVE CARDIOPULMONARY DISEASE IS NOTED. HYPERINFLATED LUNG LARA ARE NOTED.
[2017-04-11] MEDS ORDERED: Ondansetron INJ* 2 MG/ML VIAL IV ONE (21:43)
--- NOTE | 2017-04-11 21:49 | RAD ---
Indication: Syncope. CT of the brain was performed without IV contrast. Comparison is made with previous exam dated March 11, 2017. Ventricular structures are midline. No midline shift is noted. The extraction spaces are unremarkable. Periventricular lucency consistent with chronic ischemic White matter change is noted. There is no evidence of intracranial mass or hemorrhage. No other high or low density lesions are identified. Mastoid air cells and paranasal sinuses are unremarkable. IMPRESSION: No intracranial mass or hemorrhage is noted.
[2017-04-11] MEDS ORDERED: traMADol TAB* 50 MG PO PRN (22:46)
[2017-04-11] MEDS ORDERED: Ibuprofen TAB* 600 MG PO PRN (22:46)
[2017-04-11] MEDS ORDERED: Acetaminophen TAB* 325 MG PO PRN (22:47)
--- NOTE | 2017-04-12 00:32 | ED ---
Graeme Trevino Tecjoon, scribed for James Cm MD on 04/11/17 at 2032 . Dizziness - HPI Summary HPI Summary: This patient is a 86 year old female BIBA to [facility] accompanied by family with a chief complaint of dizziness prior to arrival. Patients partner states that she had right sided facial drop. Patient states that after going to the bathroom, she went to go to the bathroom and blood rushed to her head. On arrival she provides no facial droop and is A&Ox4. Patient denies loss of consciousness and any head trauma. Patient additionally reports back pain due to a recent L1 compression fracture, chills, dysuria. Patient denies cough, congestion. - History Of Current Complaint Chief Complaint: EDNeurologicalDeficit Stated Complaint: MALAISE Time Seen by Provider: 04/11/17 20:14 Hx Obtained From: Patient Onset/Duration: Resolved, Suddenly Timing: Constant Severity Initially: Moderate Severity Currently: None Character: Lightheaded, Dizzy Aggravating Factor(s): Nothing Alleviating Factor(s): Nothing Associated Signs And Symptoms: Positive: Negative - cough, congestion, Other: - back pain due to a recent L1 compression fracture, chills, dysuria - Allergies/Home Medications Allergies/Adverse Reactions: Allergies Allergy/AdvReac Type Severity Reaction Status Date / Time Penicillin G Allergy Intermediate Swelling Verified 06/13/16 09:51 PMH/Surg Hx/FS Hx/Imm Hx Previously Healthy: Yes Endocrine/Hematology History: Denies: Hx Diabetes, Hx Sickle Cell Disease, Hx Thyroid Disease Cardiovascular History: Denies: Hx Hypertension Respiratory History: Denies: Hx Asthma, Hx Chronic Obstructive Pulmonary Disease (COPD), Other Respiratory Problems/Disorders GI History: Denies: Hx Ulcer, Other GI Disorders History: Denies: Other Problems/Disorders Musculoskeletal History: Reports: Hx Arthritis - FINGERS Sensory History: Reports: Hx Cataracts, Hx Contacts or Glasses Denies: Hx Hearing Aid Opthamlomology History: Reports: Hx Cataracts, Hx Contacts or Glasses Psychiatric History: Reports: Hx Anxiety - OCCASSIONALLY NO MEDICATION, Hx Depression - NO MEDICATION, ONLY OCCASSIONALLY NOT CHRONIC - Surgical History Surgery Procedure, Year, and Place: APPENDIX- 13 YRS OLD. LEFT EAR PINNED - 22 YRS OLD. WRIST SURGERY - 15 YRS AGO. BILAT CATERACTS Hx Anesthesia Reactions: No - N/V WITH APPENDIX SURGERY DUE TO GAS Infectious Disease History: No Infectious Disease History: Denies: Hx Hepatitis, Hx Human Immunodeficiency Virus (HIV), History Other Infectious Disease, Traveled Outside the [place] in Last 30 Days - Family History Known Family History: Positive: Cardiac Disease, Other - Negative: malignant hyperthermia, anesthesia reaction Negative: Diabetes - Social History Lives: With Family Alcohol Use: Rare Alcohol Amount: glas of wine about 7 times a month Hx Substance Use: No Substance Use Type: Reports: None Hx Tobacco Use: Yes Smoking Status (MU): Former Smoker Type: Cigarettes Amount Used/How Often: dates are estimates Have You Smoked in the Last Year: No Review of Systems Positive: Chills, Other - dizziness. Negative: Fever Cardiovascular: Negative - congestion Negative: Cough Positive: dysuria Positive: Other - back pain All Other Systems Reviewed And Are Negative: Yes Physical Exam - Summary Physical Exam Summary: Appearance: Well appearing, no pain distress Skin: warm, dry, reflects adequate perfusion Head/face: normal Eyes: EOMI, ENRICO ENT: mucous membranes dry Neck: supple, non-tender Respiratory: Lungs sounds diminished Cardiovascular: RRR, pulses symmetrical Abdomen: non-tender, abd is thin, scaphoid. Bowel: present Musculoskeletal: Pain in lower back with flexion due to L1 compression fracture Neuro: normal, sensory motor intact, A&Ox3, no neurological deficit, NIH stroke scale: 0 Triage Information Reviewed: Yes Vital Signs On Initial Exam: Initial Vitals Temp Pulse Resp BP Pulse Ox 98.2 F 70 16 158/100 93 04/11/17 20:11 04/11/17 20:11 04/11/17 20:11 04/11/17 20:11 04/11/17 20:11 Vital Signs Reviewed: Yes Diagnostics - Vital Signs Vital Signs Temp Pulse Resp BP Pulse Ox 04/11/17 20:11 98.2 F 70 16 158/100 93 - Laboratory Lab Results: Lab Results 04/11/17 04/11/17 04/11/17 Range/Units 20:45 20:45 20:45 WBC 5.5 (3.5-10.8) 10^3/ul RBC 4.74 (4.0-5.4) 10^6/ul Hgb 15.2 (12.0-16.0) g/dl Hct 44 (35-47) % MCV 94 (80-97) fL MCH 32 H (27-31) pg MCHC 34 (31-36) g/dl RDW 13 (10.5-15) % Plt Count 127 L (150-450) 10^3/ul MPV 10 (7.4-10.4) um3 Neut % (Auto) 90.2 H (38-83) % Lymph % (Auto) 3.9 L (25-47) % Brewster % (Auto) 5.3 (1-9) % Eos % (Auto) 0.1 (0-6) % Baso % (Auto) 0.5 (0-2) % Absolute Neuts (auto) 4.9 (1.5-7.7) 10^3/ul Absolute Lymphs (auto) 0.2 L (1.0-4.8) 10^3/ul Absolute Monos (auto) 0.3 (0-0.8) 10^3/ul Absolute Eos (auto) 0 (0-0.6) 10^3/ul Absolute Basos (auto) 0 (0-0.2) 10^3/ul Absolute Nucleated RBC 0 10^3/ul Nucleated RBC % 0.2 APTT 24.5 L (26.0-36.3) seconds Sodium 133 (133-145) mmol/L Potassium 3.9 (3.5-5.0) mmol/L Chloride 93 L (101-111) mmol/L Carbon Dioxide 25 (22-32) mmol/L Anion Gap 15 H (2-11) mmol/L BUN 19 (6-24) mg/dL Creatinine 1.01 H (0.51-0.95) mg/dL Est GFR ( Amer) 66.8 (>60) Est GFR (Non-Af Amer) 52.0 (>60) BUN/Creatinine Ratio 18.8 (8-20) Glucose 117 H (70-100) mg/dL Lactic Acid (0.5-2.0) mmol/L Calcium 11.1 H (8.6-10.3) mg/dL Magnesium 2.0 (1.9-2.7) mg/dL Total Bilirubin 0.70 (0.2-1.0) mg/dL AST 32 (13-39) U/L ALT 32 (7-52) U/L Alkaline Phosphatase 81 (34-104) U/L Troponin I 0.02 (<0.04) ng/mL Total Protein 7.2 (6.4-8.9) g/dL Albumin 4.1 (3.2-5.2) g/dL Globulin 3.1 (2-4) g/dL Albumin/Globulin Ratio 1.3 (1-3) TSH 3.55 (0.34-5.60) mcIU/mL Influenza A (Rapid) (Negative) Influenza B (Rapid) (Negative) 04/11/17 04/11/17 Range/Units 20:45 22:43 WBC (3.5-10.8) 10^3/ul RBC (4.0-5.4) 10^6/ul Hgb (12.0-16.0) g/dl Hct (35-47) % MCV (80-97) fL MCH (27-31) pg MCHC (31-36) g/dl RDW (10.5-15) % Plt Count (150-450) 10^3/ul MPV (7.4-10.4) um3 Neut % (Auto) (38-83) % Lymph % (Auto) (25-47) % Brewster % (Auto) (1-9) % Eos % (Auto) (0-6) % Baso % (Auto) (0-2) % Absolute Neuts (auto) (1.5-7.7) 10^3/ul Absolute Lymphs (auto) (1.0-4.8) 10^3/ul Absolute Monos (auto) (0-0.8) 10^3/ul Absolute Eos (auto) (0-0.6) 10^3/ul Absolute Basos (auto) (0-0.2) 10^3/ul Absolute Nucleated RBC 10^3/ul Nucleated RBC % APTT (26.0-36.3) seconds Sodium (133-145) mmol/L Potassium (3.5-5.0) mmol/L Chloride (101-111) mmol/L Carbon Dioxide (22-32) mmol/L Anion Gap (2-11) mmol/L BUN (6-24) mg/dL Creatinine (0.51-0.95) mg/dL Est GFR ( Amer) (>60) Est GFR (Non-Af Amer) (>60) BUN/Creatinine Ratio (8-20) Glucose (70-100) mg/dL Lactic Acid 2.3 H* (0.5-2.0) mmol/L Calcium (8.6-10.3) mg/dL Magnesium (1.9-2.7) mg/dL Total Bilirubin (0.2-1.0) mg/dL AST (13-39) U/L ALT (7-52) U/L Alkaline Phosphatase (34-104) U/L Troponin I (<0.04) ng/mL Total Protein (6.4-8.9) g/dL Albumin (3.2-5.2) g/dL Globulin (2-4) g/dL Albumin/Globulin Ratio (1-3) TSH (0.34-5.60) mcIU/mL Influenza A (Rapid) Negative (Negative) Influenza B (Rapid) Negative (Negative) Result Diagrams: 04/11/17 20:45 04/11/17 20:45 Lab Statement: Any lab studies that have been ordered have been reviewed, and results considered in the medical decision making process. - Radiology CXR Xray Interpretation: No Acute Changes - No active cardiopulmonary disease is noted. Hyperinflated lung antoine are noted. ED physician has reviewed this radiology report. Radiology Interpretation Completed By: Radiologist - CT CT Brain CT Interpretation: No Acute Changes - No intracranial mass or hemorrhage is noted. ED physician has reviewed this radiology report. CT Interpretation Completed By: Radiologist - EKG 2030 Cardiac Rate: NL EKG Rhythm: Sinus Rhythm - [address] Segment: Non-Specific EKG Interpretation: NSR (76 BPM), Left axis deviation, Unusual p-wave axis Nonspecific ST Re-Evaluation - Re-Evaluation First Eval Change: Improved Dizzy Course/Dx - Course Course Of Treatment: pt with syncope on toilet. Recent UTI, completed abx. No injury. Improved here. Will place in obs given quite elderly and frail appearing. Hydrated here with improvement. Has yet to provide urine sample. - Diagnoses Differential Diagnosis/HQI/PQRI: CVA, Dysrhythmia, Hypovolemia, Metabolic Abnormality, Other - UTI Provider Diagnoses: Syncope and collapse - Provider Notifications Discussed Care Of Patient With: Reggie Iyer - Hosptialist to admit Instructed by Provider To: Admit As Observation Discharge - Discharge Plan Condition: Fair Disposition: ADMITTED TO [facility] The documentation as recorded by the Graeme garay Tecjoon accurately reflects the service I personally performed and the decisions made by , James Cm MD.
[2017-04-12] MEDS: NS 0.9% 1000 ML* 1,000 ML IV SCH ×2 (00:44→10:54)
[2017-04-12] MEDS: Enoxaparin(*) 30 MG/0.3 ML SYR SUBCUT SCH ×2 (00:46→20:49)
--- NOTE | 2017-04-12 01:17 | HP ---
CC: Dr. Good * ADMISSION HISTORY AND PHYSICAL: DATE OF ADMISSION: 04/11/17 PRIMARY CARE PROVIDER: Dr. Good. HEALTHCARE PROXY: Tasneem Daniel. CODE STATUS: DNR/DNI, discussed with the patient and her healthcare proxy. MOLST completed. SOURCE OF INFORMATION: History obtained from interview with the patient and her healthcare proxy. RELIABILITY: From healthcare proxy is good, from patient is poor. CHIEF COMPLAINT: Loss of consciousness. HISTORY OF PRESENT ILLNESS: This is an 86-year-old female, last admission 03/11 after a fall, complicated by a back pain, found with a new L1 compression fracture with that hospital stay complicated by urinary tract infection, discharged on Bactrim, found to be resistant after discharge and was appropriately changed to another antibiotic by her PCP with last dose 1 week prior to presentation, who had noticed in conjunction with her partner increasing weakness since the time of discharge, now only getting out of bed 1 to 2 times per day to go to the kitchen, punctuated by less balance, not ambulating alone, decreased appetite. She has been constipated and had visited [facility] care where she was placed on laxatives. The day of admission, she walked across the home which is longer than usual and on returning to the bathroom with her partner, she had to stop and rest for approximately 10 minutes. She walked into the bathroom and had a loose bowel movement which was the second of the day, which was abnormal given her recent constipation. She sit up and felt too tired to brush her teeth as is their usual routine and instead turned with her partner to return to bed. She noted that she felt like she was going to fall and her partner helped facilitate a controlled fall on to a closed commode. After she had her in a sitting position, she was noted to have lost consciousness with her right arm hanging lower than her left. She was unconscious for a less than 5 minutes, EMS was activated upon arrival, was not noted with any neurological deficits. She [place] [facility] [place] On seen in the emergency room, again found without neurological compromise. The patient is awake and alert and no complaints other than cervical neck tenderness after being transferred to [facility] and to [facility] via EMS. Tramadol had been added by Dr. Good after discharge for pain. PAST MEDICAL HISTORY: Includes bladder incontinence, right fourth finger fracture, thoracic compression fracture, bilateral cataract removal, arthritis, intermittent vertigo, scoliosis, right wrist fracture, status post pinning, and frequent urinary tract infections. HOME MEDICATIONS: Recently completed antibiotic for urinary tract infection 2 weeks prior to presentation. We do not know what antibiotic she was changed to. She had been discharged on Bactrim, which her E. coli was resistant to, therefore, any other antibiotic would be seemingly appropriate. 1. Tramadol 50 mg every 6 hours. 2. Vitamin E. 3. Vitamin D3. 4. Vitamin B complex. 5. Vitamin C complex. 6. Zofran 4 mg ODT every 8 hours as needed. 7. Lecithin 1200 mg twice daily. 8. Motrin 600 mg every 6 hours as needed. 9. Cranberry. 10. Cod liver oil with vitamins. 12. Acidophilus. ALLERGIES: To PENICILLIN. FAMILY HISTORY: CAD in her father, at 57. No histories of CVAs. SOCIAL HISTORY: Remote tobacco, quit at age 25. No alcohol. Ambulates with a walker, but needs assistance as difficult with transfers. Lives at home alone with partner, has VNS at home and PT twice weekly. REVIEW OF SYSTEMS: As per HPI including increasing weakness, fatigue, decreased appetite, loss of weight, constipation, then 2 recent large bowel movements which lasted prior to the loss of conscious. No fevers, chills, or night sweats. No chest pain, shortness of breath. No orthopnea, palpitations, headache, cough, dysuria, malodorous urine, melena, bright red blood per rectum. PHYSICAL EXAMINATION GENERAL: Elderly female, lying 30 degrees in bed, interactive, pleasant, in no apparent distress, appears stated age. VITAL SIGNS: In the emergency room, blood pressure 148/74, heart rate 85, respiratory rate 15, 99% on room air, T-max 98.2. HEENT: Oropharynx is clear. She has dry mucous membranes. Sclerae are anicteric. NECK: She has non-elevated JVD. Cervical spine tender in paravertebral area on the right about C7. LUNGS: Clear to auscultation. HEART: She has a regular rate and rhythm. No murmurs, rubs, or gallops. ABDOMEN: Soft, nondistended. She has mild suprapubic tenderness. EXTREMITIES: Warm and well perfused, although her toes are cool to touch. 2+ peripheral pulses. NEUROLOGIC: She is alert and oriented x3. Her cranial nerves are intact. She did note potentially decreased sensation to light touch on her right face after multiple attempts to discern a difference. She has 4/4 strength symmetric bilateral in her upper extremities. She has no pronator drift. Visual antoine are intact. She has word recall at 3 minutes, was able to spell world backwards with some delay, but appropriately, knows the current president. No apparent anxiety, agitation, or depression. LABORATORY DATA: Reviewed. White blood cell count is 5.5, hemoglobin of 15.2 , platelets 127. BUN is 19, creatinine is 1.0, glucose 117, lactic acid is 2.3 , and calcium is 11.1. TSH 3.55. Urinalysis is pending. DIAGNOSTIC DATA: Chest x-ray, impression: No active cardiopulmonary disease, hyperinflated lungs. Brain CT, no intracranial mass or hemorrhage is noted. EKG, normal sinus rhythm, left axis, late R-wave progression, T-wave inversions in V2, no ST changes. ASSESSMENT AND PLAN: This is an 86-year-old female, recent hospital stay in February with L1 compression fracture and urinary tract infection, has been experiencing decreased energy, appetite and strength since that admission, now presenting with loss of consciousness after ambulating across the home, punctuated by a bowel movement. 1. Syncope, suspect in the setting of dehydration and maximal exertion for this patient including ambulating across her home and then a bowel movement. It was short, not punctuated by any neurological compromise. While her arm was hanging down to the right in the way her partner relates a story, it sounds like this was gravity dependent, never noted any slurring of her speech or asymmetric strength or weakness. She had a sudden resolution of consciousness with a full hinduism of her neurological compromise are growing for syncope and not a transient ischemic attack. We will give her 2 additional liters of normal saline at this point. Place on telemetry and monitor until tomorrow. We discussed at length her continued decline and that this may portend her future transition need for transition to the situation with more assisted. 2. Increased lactic acidosis, suspect in the setting of syncope, dehydration. Urinalysis is still pending at this time. In view, this is an important test given her recent urinary tract infection with discharge on antibiotic, did not treat the Escherichia coli given its resistance pattern. Check now. 3. Cervical spine tenderness. Check CT spine noncontrast given history of compression fractures and cervical tenderness now. I do not see need for C- spine immobilization at this time. 4. Hypercalcemia. This is new since her last hospital stay. Rehydrates. Normal saline as above. Recheck in the morning. 5. Protein-calorie malnutrition. Nutrition consult. Add Ensure to every meal. The patient is a vegetarian. Continue that diet. 6. DVT prophylaxis. Enoxaparin. 7. Code status. DNR/DNI. MOLST completed. [id number]/[facility] #: [id number] [facility]
[2017-04-12 03:51] LABS: Urine Appearance Cloudy; Urine Blood Negative (Negative); Urine Color Yellow; Urine Ketones 1+ (Negative); Urine Protein Negative (Negative); Urine Specific Gravity 1.008 (1.010-1.030); Urine Urobilinogen Negative (Negative)
--- NOTE | 2017-04-12 04:40 | PN ---
Progress Note - Progress Note Date of Service: 04/12/17 Note: Urinalysis collected after admission with +LE, Bacteria and +WBC Will tx ciprofloxacin given recent decline in function and fatigue in setting of recent UTI (E. Coli) Will need to follow urine culture
[2017-04-12] MEDS: Ciprofloxacin TAB* 500 MG PO SCH (05:01)
[2017-04-12] MEDS: Ondansetron INJ* 2 MG/ML VIAL IV PRN ×2 (05:02→09:30)
[2017-04-12 06:00] LABS: Hematocrit 37 % (35-47); Hemoglobin 12.8 g/dl (12.0-16.0); Mean Corpuscular HGB Conc 35 g/dl (31-36); Mean Corpuscular Hemoglobin 33 pg (27-31); Mean Corpuscular Volume 95 fL (80-97); Mean Platelet Volume 11 um3 (7.4-10.4); Platelet Count 118 10^3/ul (150-450); Red Cell Distribution Width 13 % (10.5-15); White Blood Count 6.5 10^3/ul (3.5-10.8)
--- NOTE | 2017-04-12 07:46 | RAD ---
HISTORY: Fall, right-sided facial droop, pain COMPARISONS: March 11, 2017 TECHNIQUE: Multiple contiguous axial CT scans were obtained of the cervical spine without intravenous contrast, with coronal and sagittal multiplanar reformations. FINDINGS: BRAIN: The visualized brain is unremarkable CENTRAL CANAL: Evaluation of the central canal is limited on CT technique; however, there is no obvious canalicular mass or epidural hemorrhage. ALIGNMENT: There is mild levocurvature of the spine. There is accentuation of the thoracic kyphosis. VERTEBRAL BODIES: There is diffuse osteopenia. The vertebral arteries are preserved in height. There is no displaced fracture. JOINTS: There is osteoarthritis of the atlantoaxial articulation, the uncovertebral, and of the facet joints. MUSCULATURE: Unremarkable INTERVERTEBRAL DISCS: There is diffuse loss of intervertebral disc height. AXIAL IMAGES: On axial images, there is moderate neural foraminal narrowing diffusely without significant osseous central canal stenosis. SOFT TISSUES: The visualized soft tissues of the neck are unremarkable. The prevertebral fat stripe is preserved. OTHER: None. IMPRESSION: 1. OSTEOPENIA. 2. DEGENERATIVE DISC DISEASE AND OSTEOARTHRITIS. 3. NO ACUTE OSSEOUS INJURY TO THE CERVICAL SPINE
[2017-04-12] MEDS ORDERED: Ciprofloxacin TAB* 500 MG PO SCH (09:00)
[2017-04-12] MEDS ORDERED: CRANBERRY PO SCH (09:00)
--- NOTE | 2017-04-12 17:44 | PN ---
Subjective Date of Service: 04/12/17 Interval History: Patient feeling significantly better today. Patient feels like she has more energy. Patient states that she has not felt dizzy on standing. Patient expresses concerns about being able to take care of herself at home. Patient has been consistently nauseated since being in the hospital previously for L1 fracture. Patient has also lost 12 pounds in that period. Patient has no symptoms of UTI. Patient denies F/C, CP, SOB, Abdominal Pain or other pain. Patient states her pain was well controlled with tylenol. Family History: Unchanged from Admission Social History: Unchanged from Admission Past Medical History: Unchanged from Admission Objective Active Medications: Acetaminophen (Tylenol Tab*) 650 mg PO Q4H PRN PRN Reason: FEVER/PAIN Last Admin: 04/12/17 04:49 Dose: 650 mg Ciprofloxacin (Cipro Tab*) 500 mg PO Q24H [facility] Last Admin: 04/12/17 05:01 Dose: 500 mg Enoxaparin Sodium (Lovenox(*)) 30 mg SUBCUT 2200 [facility] Last Admin: 04/12/17 00:46 Dose: 30 mg Sodium Chloride (Ns 0.9% 1000 Ml*) 1,000 mls @ 100 mls/hr IV PER RATE [facility] Stop: 04/13/17 08:59 Last Admin: 04/12/17 10:54 Dose: 100 mls/hr Ibuprofen (Motrin Tab*) 600 mg PO Q6H PRN PRN Reason: PAIN Ondansetron HCl (Zofran Inj*) 4 mg IV Q4H PRN PRN Reason: NAUSEA/VOMITING Last Admin: 04/12/17 09:30 Dose: 4 mg Oxygen Devices in Use Now: None Appearance: Patient is an 86yo emaciated female who appears stated age and is sitting in the bed in [facility]. Eyes: No Scleral Icterus, PERRLA Ears/Nose/Mouth/Throat: NL Teeth, Lips, Gums, Clear Oropharnyx, Mucous Membranes Moist Neck: NL Appearance and Movements; NL JVP, Trachea Midline Respiratory: Symmetrical Chest Expansion and Respiratory Effort, Clear to Auscultation Cardiovascular: NL Sounds; No Murmurs; No JVD, RRR, No Edema Abdominal: NL Sounds; No Tenderness; No Distention, No Hepatosplenomegaly, - - Slight tenderness to deep palpation diffusely. Lymphatic: No Cervical Adenopathy Extremities: No Edema, No Clubbing, Cyanosis Skin: No Rash or Ulcers, No Nodules or Sclerosis Neurological: Alert and Oriented x 3, NL Sensation, - - 4-/5 strength throughout. Result Diagrams: 04/12/17 05:31 04/12/17 07:48 Additional Lab and Data: Lab Results Assess/Plan/Problems-Billing Assessment: Patient is an 86yo female with a PMH significant for recurrent UTI, recent L1 Fx , 12 pound weight loss in a month who presents with vasovagal syncope, dehydration, UTI and AGMA who is admitted for rehydration, Antibiotics, and PT - Patient Problems (1) Vasovagal syncope Current Visit: Yes Status: Acute Code(s): R55 - SYNCOPE AND COLLAPSE SNOMED Code(s): 238135471 Comment: Patient presented with home with classic vasovagal syncope in the setting of dehydration and UTI. Patient was rehydrated and has no orthostasis, dizziness, palpitations, or recurrent syncope. (2) Malnutrition Current Visit: Yes Status: Acute Code(s): E46 - UNSPECIFIED PROTEIN-CALORIE MALNUTRITION SNOMED Code(s): 84425302 Comment: Patient has lost 12 pounds or 15% of her body weight in the last month. Patient is emaciated and has decreased facilities maintenance worker strength and a decreased ability to care for herself at home. Patient has been persistently nauseated when taking tramadol. Will stop tramadol and give zofran. PT and Nutrition consult. (3) Nausea Current Visit: Yes Status: Acute Code(s): R11.0 - NAUSEA SNOMED Code(s): 648904193 Comment: Related temporally to tramadol administration. D/C tramadol, patient has good pain control with tylenol. PRN zofran. (4) Metabolic acidosis Current Visit: Yes Status: Acute Code(s): E87.2 - ACIDOSIS SNOMED Code(s) : 98110420 Comment: Anion gap metabolic acidosis. Possibly from ketosis, lactic acidosis resolved. Will continue to hydrate and give supportive care and recheck. (5) Lumbar compression fracture Current Visit: No Status: Acute Code(s): S32.000A - WEDGE COMPRESSION FRACTURE OF UNSP LUMBAR VERTEBRA, INIT SNOMED Code(s): 376330665 Comment: Pain improved. Wear brace as tolerated. PT here and at D/C. Tylenol and Motrin for Pain control. No signs of radiculopathy. (6) UTI (urinary tract infection) Current Visit: No Status: Acute Comment: Urine culture pending Recently treated with bactrim and Cipro. Likely represents recurrent infection not treatment failure. Continue Cipro and Cranberry. (7) DVT prophylaxis Current Visit: Yes Status: Acute Code(s): NWJ1231 - SNOMED Code(s): 596906033 Comment: Kayla (8) DNR (do not resuscitate) Current Visit: Yes Status: Acute Status and Disposition: Patient is admitted inpatient. Will discharge when medically able.
[2017-04-12] MEDS ORDERED: Bisacodyl SUPP* 10 MG SUPP PR ONE (20:16)
[2017-04-12] MEDS ORDERED: Senna TAB PO PRN (20:16)
[2017-04-13] MEDS: Ciprofloxacin TAB* 500 MG PO SCH (05:05)
[2017-04-13 05:59] LABS: Hematocrit 38 % (35-47); Hemoglobin 13.2 g/dl (12.0-16.0); Mean Corpuscular HGB Conc 35 g/dl (31-36); Mean Corpuscular Hemoglobin 32 pg (27-31); Mean Corpuscular Volume 93 fL (80-97); Mean Platelet Volume 11 um3 (7.4-10.4); Platelet Count 113 10^3/ul (150-450); Red Cell Distribution Width 13 % (10.5-15); White Blood Count 4.4 10^3/ul (3.5-10.8)
[2017-04-13 06:00] LABS: ABS Basophils 0 10^3/ul (0-0.2); ABS Eosinophils 0 10^3/ul (0-0.6); ABS Lymphocytes 0.4 10^3/ul (1.0-4.8); ABS Monocytes 0.4 10^3/ul (0-0.8); ABS Neutrophils 3.5 10^3/ul (1.5-7.7); ABS Nucleated RBC 0 10^3/ul; Eosinophil % 0.4 % (0-6); Nucleated Red Blood Cells % 0
[2017-04-13 06:10] LABS: EGFR Non-African American 71.1 (>60)
[2017-04-13] MEDS ORDERED: Ondansetron ODT TAB* 4 MG SL PRN (07:30)
[2017-04-13 07:49] VITALS: BP 163/91
[2017-04-13] MEDS ORDERED: Ondansetron ODT TAB* 4 MG SL SCH (07:59)
[2017-04-13] MEDS ORDERED: Potassium Chloride LIQUID* 20 MEQ PACKET PO SCH (11:00)
--- NOTE | 2017-04-14 02:47 | DS ---
CC: Dr. Good * DISCHARGE SUMMARY: DATE OF ADMISSION: 04/11/17 DATE OF DISCHARGE: 04/13/17 PRIMARY CARE PROVIDER: Dr. Good. MY ATTENDING WHILE IN THE HOSPITAL: Chauncey Dean MD * (DICTATED BY MIRZA ALLEN) PRIMARY DISCHARGE DIAGNOSES: 1. Syncope. 2. Dehydration. 3. Urinary tract infection. 4. Malnutrition. SECONDARY DISCHARGE DIAGNOSES: 1. Incontinence. 2. Compression fracture. 3. Vertigo. 4. Arthritis. 5. Scoliosis. STUDIES DONE WHILE IN THE HOSPITAL: Electrocardiogram from 04/11/17 shows normal sinus rhythm, left axis deviation, early repolarization in V3, V4, wandering baseline, prolonged PA interval, QTC 437, borderline left ventricular hypertrophy, left atrial enlargement. No other abnormalities. Brain CT from shows no intracranial mass or hemorrhage. Cervical spine CT from had osteopenia and degenerative disk disease. No acute osseous injury to the cervical spine. Chest x-ray from 04/11/17, read as no active cardiopulmonary disease, hyperinflated lung antoine. MEDICATIONS AT DISCHARGE: 1. Tylenol 650 mg p.o. q.4 hours. 2. Ciprofloxacin 500 mg p.o. q.24 hours x5. 3. Ibuprofen 600 mg p.o. q.6 hours as needed for pain. 4. Zofran 4 mg sublingually as scheduled a.c. 5. Senna 2 tablets p.o. at bedtime if needed. New medications at discharge: 1. Tylenol. 2. Cipro. 3. Motrin. 4. Zofran. 5. Senna. Medications discontinued at discharge: 1. Tramadol 50 mg p.o. q.6 hours as needed for pain. HOSPITAL COURSE: This is a brief summary of the patient's presentation. For more details, please see the history and physical from Dr. Reggie Iyer on . In brief, the patient is an 86-year-old female with past medical history significant for the above, who presents with syncope on the day of admission, where she had just had a bowel movement walked across the room, had a presyncopal feeling, sat down and then was unresponsive for several minutes, less than 5. The patient had been having increased lethargy over the past week , only getting out of bed once or twice a day, decrease in ambulation, decrease in appetite. The patient lost 12 pounds since her recent admission to this hospital on 04/11/17. The patient had been taking tramadol for pain, but found this made her nauseous and constipated. The patient had been taking laxatives for constipation and had 2 loose bowel movements on the day of admission. The patient was given 2 L of normal saline overnight. The patient was also found to have a urinary tract infection on urinalysis. The patient was started on ciprofloxacin. This was deemed to be classic vasovagal syncope. The patient also had anion gap and metabolic acidosis which did not resolve with fluid administration and positive ketones in her urine, bringing up the possibility of severe malnutrition leading to starvation ketosis. The patient had a consultation with Nutrition. Her family was very concerned of her weight loss and inability to thrive, it was deemed that this was mainly due to tramadol usage, which made her very nauseous. The patient's tramadol was discontinued and it was stressed with the patient many times that she needs to use high calorie foods and drinks and increase her fluid intake. The patient was also started on Zofran initially IV and then oral dissolving tablets with good effect. The patient ate very well with each meal while she was here. The patient also discovered she liked protein shakes quite a bit and requests that these be made for her at home. The patient worked with PT and was able to ambulate 60 feet with contact guard assist. The family was amenable to taking her home. The patient felt much better after hospitalization. The patient had dysuria prior to her admission, which had resolved and also stated that her back pain from her recent lumbar fracture was gone with the use of only Tylenol. The patient has visiting nurse services and Physical Therapy already set up at home from previous hospitalization. PHYSICAL EXAMINATION ON DAY OF DISCHARGE: General: The patient is an 86-year- old female who appears stated age and sitting comfortably in bed, in no acute distress. The patient is emaciated. Vital Signs at the time of discharge: Temperature 97.6, heart rate 73, respiratory rate 16, oxygen saturation 100% on room air, blood pressure 163/91. HEENT: Head normocephalic, atraumatic. Sclerae anicteric. No conjunctival injection. Nasal mucosa is moist. Oral mucosa is moist. No pharyngeal erythema, exudates, or discharge. Neck: Supple. No lymphadenopathy. Tenderness to palpation over the left side of the trapezius, muscle without crepitus. No bony tenderness or spinous process tenderness. Cardiac: Regular rate and rhythm. No clicks, murmurs, gallops, or rubs. Pulses 2+ in bilateral dorsalis pedis, posterior tibialis, and radial areas. Trace edema noted in the bilateral lower extremities. Respiratory: Clear to auscultation bilaterally. No wheezes, rales, or rhonchi. Good air exchange bilaterally. Abdomen: Soft, nontender, nondistended. Bowel sounds present, normoactive in all 4 quadrants. No hepatosplenomegaly, no abdominal bruits auscultated. Genitourinary: No suprapubic tenderness or CVA tenderness. Skin: Clean, dry, and intact. No rash. Neuro: Cranial nerves II through XII intact. No focal deficits. Normal gait. Psychiatric: Pleasant and cooperative. LABORATORY DATA ON DAY OF DISCHARGE: White blood cell count 4.4, hemoglobin 13.2, MCV 93, MCH 32, platelet count 113,000. Sodium 137, potassium 3.1, chloride 104, carbon dioxide 28, anion gap 5, BUN 16, creatinine 0.77, glucose 93, calcium 9.6, prealbumin 16. Other laboratory data of note; urine showed +1 leukocyte esterase, +2 white blood cells, +1 ketones, +2 urine bacteria, hyaline casts. Influenza A and B negative. TSH 3.55. Calcium 11.1, creatinine 1.01 on on admission. Anion gap 15 on admission. DISCHARGE PLAN: The patient will be discharged to home with the support of her partner, friends and visiting nurse services with PT and OT services. The patient educated strongly on the need for her to increase her dietary intake in order to maximize her strength. The patient states understanding and there were several high calorie foods found during her admission that she was amenable to eating. The patient should follow up with her primary care provider within 1 week for general medical management and stress any issues that might be standing in the way of her dietary intake. The patient should take ciprofloxacin for 5 days. The patient should take Zofran ODT before every meal initially and discuss with her primary care provider, stopping or changing this to as needed. The patient should return to the hospital for any alarming symptoms such as repeat syncope, chest pain, shortness of breath or fevers do not respond to medication. The patient should have a regular unrestricted diet as above and engage in activity as tolerated, working with PT and OT to maximize her functional capacity and return her to her previous level of functioning. TIME SPENT: Approximately 60 minutes was spent on this discharge, 30 of which was spent [id number] with the patient obtaining history and physical and discussing treatment plan. MIRZA ALLEN [id number]/[facility] #: [id number] MTDRichie
== END 2017-04-13 12:45 | disposition home or self-care (01) | DRG 690 ==
LOC: ED 20:06 → MEDTELE 22:47 → OBSVTOIN 04-12 16:20
PROVIDERS: ADMIT Internal Medicine; ATTEND Internal Medicine
DX: N39.0 Urinary tract infection, site not specified (principal); E46 Unspecified protein-calorie malnutrition; E87.2 Acidosis; E86.0 Dehydration; E83.52 Hypercalcemia; M41.9 Scoliosis, unspecified; Z68.1 Body mass index [BMI] 19.9 or less, adult; B95.2 Enterococcus as the cause of diseases classified elsewhere; R55 Syncope and collapse; M48.56XD Collapsed vertebra, not elsewhere classified, lumbar region, subsequent encounter for fracture with routine healing; Z66 Do not resuscitate; R32 Unspecified urinary incontinence; M19.90 Unspecified osteoarthritis, unspecified site; Z79.1 Long term (current) use of non-steroidal anti-inflammatories (NSAID); Z79.899 Other long term (current) drug therapy; Z88.0 Allergy status to penicillin; Z82.49 Family history of ischemic heart disease and other diseases of the circulatory system; Z87.891 Personal history of nicotine dependence
CPT/HCPCS: 36415; 70450; 71045; 72125; 80048; 80053; 81003; 81015; 83605; 83735; 84134; 84443; 84484; 85025; 85027; 85730; 87077; 87086; 87186; 87502; 93005; 99284; A9270-GY; J1650; J2405

== ENCOUNTER 2017-09-01 11:23 | Observation (INO) | payer MEDICARE ==
[2017-09-01 12:36] LABS: ABS Basophils 0 10^3/ul (0-0.2); ABS Eosinophils 0 10^3/ul (0-0.6); ABS Lymphocytes 0.4 10^3/ul (1.0-4.8); ABS Monocytes 0.6 10^3/ul (0-0.8); ABS Neutrophils 8.8 10^3/ul (1.5-7.7); ABS Nucleated RBC 0 10^3/ul; Eosinophil % 0.4 % (0-6); Hematocrit 39 % (35-47); Hemoglobin 13.5 g/dl (12.0-16.0); Lymphocyte % 3.8 % (25-47); Mean Corpuscular HGB Conc 34 g/dl (31-36); Mean Corpuscular Hemoglobin 32 pg (27-31); Mean Corpuscular Volume 94 fL (80-97); Mean Platelet Volume 9.3 um3 (7.4-10.4); Nucleated Red Blood Cells % 0; Platelet Count 152 10^3/ul (150-450); Red Blood Count 4.17 10^6/ul (4.00-5.40); Red Cell Distribution Width 13 % (10.5-15); White Blood Count 9.8 10^3/ul (3.5-10.8)
[2017-09-01 12:52] LABS: EGFR Non-African American 62.4 (>60)
--- NOTE | 2017-09-01 13:22 | RAD ---
HISTORY: Syncope COMPARISONS: April 11, 2017 VIEWS: 1: frontal portable view of the chest at 1:00 PM FINDINGS: LINES AND TUBES: None. CARDIOMEDIASTINAL SILHOUETTE: The cardiomediastinal silhouette is normal for portable technique. PLEURA: The costophrenic angles are sharp. No pleural abnormalities are noted. LUNG PARENCHYMA: There is hyperinflation. ABDOMEN: The upper abdomen is clear. There is no subphrenic gas. BONES AND SOFT TISSUES: No bone or soft tissue abnormalities are noted. IMPRESSION: COPD. NO ACTIVE CARDIOPULMONARY DISEASE.
[2017-09-01] MEDS ORDERED: Prochlorperazine TAB* 5 MG PO PRN (13:46)
[2017-09-01] MEDS ORDERED: NS 0.9% 1000 ML* 1,000 ML IV SCH (14:00)
[2017-09-01] MEDS ORDERED: Al Hydrox/Mg Hydrox/Simet LIQ* 30 ML UDC PO PRN (14:13)
[2017-09-01] MEDS ORDERED: Acetaminophen TAB* 325 MG PO PRN (14:13)
[2017-09-01] MEDS ORDERED: Magnesium Sulfate 1 GM IV* 1 GM/100 ML BAG IV ONE (14:22)
--- NOTE | 2017-09-01 14:48 | RAD ---
HISTORY: syncope COMPARISONS: April 11, 2017 TECHNIQUE: Multiple contiguous axial CT scans were obtained of the head without intravenous contrast. FINDINGS: HEMORRHAGE/INFARCT: There is no hemorrhage or acute infarct. MASSES/SHIFT: There is no mass or shift. EXTRA-AXIAL SPACES: There are no extra-axial fluid collections. SULCI AND VENTRICLES: The sulci and ventricles are normal in size and position for the patient's stated age. CEREBRUM: There is mild hypoattenuation of the periventricular and subcortical white matter. BRAINSTEM: There are no focal parenchymal abnormalities. CEREBELLUM: There are no focal parenchymal abnormalities. VESSELS: The vessels are grossly normal. PARANASAL SINUSES: The paranasal sinuses are clear. ORBITS: The orbits are unremarkable. BONES AND SOFT TISSUE: No bone or soft tissue abnormalities are noted. OTHER: None IMPRESSION: NO ACUTE INTRACRANIAL PATHOLOGY.
--- NOTE | 2017-09-01 15:50 | RAD ---
HISTORY: left hip pain COMPARISONS: None VIEWS: 3, Frontal view of the pelvis with frontal and frog-leg views of the left hip FINDINGS: BONE DENSITY: There is diffuse osteopenia. BONES: There is no displaced fracture. JOINTS: There is no arthropathy. ALIGNMENT: There is no dislocation. SOFT TISSUES: Unremarkable. OTHER FINDINGS: None. IMPRESSION: 1. OSTEOPENIA. 2. NO RADIOGRAPHIC EVIDENCE FOR HIP FRACTURE. X-RAYS MAY BE NEGATIVE WITH NONDISPLACED HIP FRACTURE, IF THERE IS PERSISTENT CLINICAL CONCERN, RECOMMEND CONSIDERATION OF MRI. IN THE SETTING OF CONTRAINDICATION TO MRI OR LIMITATION IN EMERGENT ACCESS TO MRI, CT WOULD BE SUGGESTED.
--- NOTE | 2017-09-01 16:08 | ED ---
Mookie Trevino Tenzin, scribed for Sulaiman Mercado MD on 09/01/17 at 1202 . Syncope/Near Syncope - HPI Summary HPI Summary: Pt is an 87 years old female BIBA with complaints of syncope episode this morning. Pt reports that she felt dizzy, nauseous, malaise with back pain this morning before the onset. She was trying to roll over and get up from the bed to the commode prior to the onset. Pt notes that this was the only syncope episode where she experience LOC for about 10 to 15 mins. She reports that she felt "very disoriented" today. She had similar syncope episodes twice in the past with one in Mar 11 and the second one in Mar but in both times she notes that she didn't experience LOC. She also reports that she have a chronic back pain and also additional pain in her sacrum. She sees a chiropractor for it. - History Of Current Complaint Chief Complaint: EDSyncope Time Seen by Provider: 09/01/17 11:42 Hx Obtained From: Patient, Family/Search Engine Marketing Specialist - Friend Onset/Duration: Sudden Onset - this morning. Timing: Minutes - 10-15 mins Aggravating Factor(s): Nothing Alleviating Factor(s): Nothing Associated Signs And Symptoms: Lightheadedness - dizzy, Numbness, Weakness, Other - chronic back pain, sacrum pain. - Allergies/Home Medications Allergies/Adverse Reactions: Allergies Allergy/AdvReac Type Severity Reaction Status Date / Time Penicillins Allergy Swelling Verified 09/01/17 12:46 Home Medications: Home Medications Ascorbic Acid TAB* [Vitamin C TAB*] 2,000 mg PO BID 09/01/17 [History Confirmed 09/01/17] Cholecalciferol (Vitamin D3) [Vitamin D3] 5,000 units PO QAM 09/01/17 [History Confirmed 09/01/17] Cod Liver Oil 1 cap PO BID 09/01/17 [History Confirmed 09/01/17] Cranberry [Cranberry] 400 mg PO DAILY 09/01/17 [History Confirmed 09/01/17] Ibuprofen TAB* [Advil TAB*] 200 mg PO BID 09/01/17 [History Confirmed 09/01/17] Lactobacillus Acidophilus [Freeze Dried Acidophilus] 1 cap PO QAM 09/01/17 [ History Confirmed 09/01/17] Magnesium CITRATE* [Citrate of Magnesia*] 0.25 teasp PO BID 09/01/17 [History Confirmed 09/01/17] Methylcobalamine (NF) [B-12] 1,000 mcg SL DAILY 09/01/17 [History Confirmed ] Prochlorperazine TAB* [Compazine Tab*] 5 mg PO Q8H PRN 09/01/17 [History Confirmed 09/01/17] Vitamin B Complex TAB* [B Complex-50*] 1 tab PO QAM 09/01/17 [History Confirmed 09/01/17] Vitamin E CAP* 400 unit PO BID 09/01/17 [History Confirmed 09/01/17] Zinc Amino Acid Chelate [Zinc Chelated] 23 mg PO BEDTIME 09/01/17 [History Confirmed 09/01/17] traMADol TAB* [Ultram*] 50 - 100 mg PO Q6HR PRN 09/01/17 [History Confirmed ] PMH/Surg Hx/FS Hx/Imm Hx Endocrine/Hematology History: Denies: Hx Anticoagulant Therapy, Hx Blood Disorders, Hx Diabetes, Hx Sickle Cell Disease, Hx Thyroid Disease Cardiovascular History: Reports: Hx Syncope Denies: Hx Hypercholesterolemia, Hx Hypertension, Hx Peripheral Vascular Disease, Hx Valvular Heart Disease Respiratory History: Denies: Hx Asthma, Hx Chronic Obstructive Pulmonary Disease (COPD), Hx Cystic Fibrosis, Hx Pneumonia, Hx Pulmonary Embolism, Other Respiratory Problems /Disorders GI History: Reports: Hx Gastroesophageal Reflux Disease Denies: Hx Ulcer, Other GI Disorders History: Denies: Hx Acute Renal Failure, Hx Benign Prostatic Hyperplasia, Hx Dialysis , Other Problems/Disorders Musculoskeletal History: Reports: Hx Arthritis - FINGERS, Hx Osteoporosis, Hx Scoliosis Sensory History: Reports: Hx Cataracts, Hx Contacts or Glasses Denies: Hx Eye Injury, Hx Eye Prosthesis, Hx Glaucoma, Hx Legally Blind, Hx Macular Degeneration, Hx Vision Problem, Hx Deafness, Hx Hearing Aid, Hx Hearing Problem, Other Sensory Impairments Opthamlomology History: Reports: Hx Cataracts, Hx Contacts or Glasses Denies: Hx Eye Injury, Hx Eye Prosthesis, Hx Glaucoma, Hx Legally Blind, Hx Macular Degeneration, Hx Vision Problem, Other Sensory Impairments Neurological History: Reports: Hx Headaches Denies: Hx Dementia, Hx Migraine, Hx Seizures, Hx Spinal Cord Injury, Hx Transient Ischemic Attacks (TIA) Psychiatric History: Reports: Hx Anxiety - OCCASSIONALLY NO MEDICATION, Hx Depression - NO MEDICATION, ONLY OCCASSIONALLY NOT CHRONIC, Hx Panic Disorder Denies: Hx Suicide Attempt, Hx of Violent Episodes Against Others - Surgical History Surgery Procedure, Year, and Place: APPENDIX- 13 YRS OLD. LEFT EAR PINNED - 22 YRS OLD. WRIST SURGERY - 15 YRS AGO. BILAT CATERACTS Hx Anesthesia Reactions: No - N/V WITH APPENDIX SURGERY DUE TO GAS Infectious Disease History: No Infectious Disease History: Denies: Hx Hepatitis, Hx Human Immunodeficiency Virus (HIV), Hx of Known/ Suspected MRSA, Hx Shingles, Hx Tuberculosis, Hx Known/Suspected VRE, Hx Known/ Suspected VRSA, History Other Infectious Disease, Traveled Outside the [place] in Last 30 Days - Family History Known Family History: Positive: Cardiac Disease, Other - Negative: malignant hyperthermia, anesthesia reaction Negative: Diabetes - Social History Alcohol Use: Rare Alcohol Amount: glas of wine about 7 times a month Hx Substance Use: No Substance Use Type: Reports: None Hx Tobacco Use: Yes Smoking Status (MU): Former Smoker Type: Cigarettes Amount Used/How Often: dates are estimates Have You Smoked in the Last Year: No Review of Systems Positive: Fatigue Positive: Nausea Positive: Other - back pain and sacrum pain. Positive: Weakness, Syncope All Other Systems Reviewed And Are Negative: Yes Physical Exam - Summary Physical Exam Summary: Appearance: The patient is well-nourished in no acute distress and in no acute pain. Skin: The skin is warm and dry and skin color reflects adequate perfusion. Her skin tends a little. HEENT: The head is normocephalic and atraumatic. The pupils are equal and reactive. The conjunctivae are clear and without drainage. Nares are patent and without drainage. Mouth reveals moist mucous membranes and the throat is without erythema and exudate. The external ears are intact. The ear canals are patent and without drainage. The tympanic membranes are intact. Neck: the neck is supple with full range of motion and non-tender. There are no carotid bruits. There is no neck vein distension. Respiratory: Chest is non-tender. Lungs are clear to auscultation and breath sounds are symmetrical and equal. Cardiovascular: Heart is regular rate and rhythm. There is no murmur or rub auscultated. There is no peripheral edema and pulses are symmetrical and equal. Abdomen: The abdomen is soft and non-tender. There are normal bowel sounds heard in all four quadrants and there is no organomegaly palpated. Musculoskeletal: There is no back tenderness noted. Extremities are non-tender with full range of motion. There is good capillary refill. There is no peripheral edema or calf tenderness elicited. Neurological: Patient is alert and oriented to person, place and time. The patient has symmetrical motor strength in all four extremities. Cranial nerves are grossly intact. Deep tendon reflexes are symmetrical and equal in all four extremities. Psychiatric: The patient has an appropriate affect and does not exhibit any anxiety or depression. Triage Information Reviewed: Yes Vital Signs On Initial Exam: Initial Vitals Temp Pulse Resp BP Pulse Ox 98.5 F 90 17 118/57 94 09/01/17 11:29 09/01/17 11:29 09/01/17 11:29 09/01/17 11:29 09/01/17 11:29 Vital Signs Reviewed: Yes Diagnostics - Vital Signs Vital Signs Temp Pulse Resp BP Pulse Ox 09/01/17 11:29 98.5 F 90 17 118/57 94 - Laboratory Lab Results: Lab Results 09/01/17 09/01/17 09/01/17 Range/Units 12:27 12:27 12:27 WBC 9.8 (3.5-10.8) 10^3/ul RBC 4.17 (4.00-5.40) 10^6/ul Hgb 13.5 (12.0-16.0) g/dl Hct 39 (35-47) % MCV 94 (80-97) fL MCH 32 H (27-31) pg MCHC 34 (31-36) g/dl RDW 13 (10.5-15) % Plt Count 152 (150-450) 10^3/ul MPV 9.3 (7.4-10.4) um3 Neut % (Auto) 89.6 H (38-83) % Lymph % (Auto) 3.8 L (25-47) % Dukes % (Auto) 5.9 (0-7) % Eos % (Auto) 0.4 (0-6) % Baso % (Auto) 0.3 (0-2) % Absolute Neuts (auto) 8.8 H (1.5-7.7) 10^3/ul Absolute Lymphs (auto) 0.4 L (1.0-4.8) 10^3/ul Absolute Monos (auto) 0.6 (0-0.8) 10^3/ul Absolute Eos (auto) 0 (0-0.6) 10^3/ul Absolute Basos (auto) 0 (0-0.2) 10^3/ul Absolute Nucleated RBC 0 10^3/ul Nucleated RBC % 0 Sodium 137 (135-145) mmol/L Potassium 4.4 (3.5-5.0) mmol/L Chloride 103 (101-111) mmol/L Carbon Dioxide 29 (22-32) mmol/L Anion Gap 5 (2-11) mmol/L BUN 21 (6-24) mg/dL Creatinine 0.86 (0.51-0.95) mg/dL Est GFR ( Amer) 80.3 (>60) Est GFR (Non-Af Amer) 62.4 (>60) BUN/Creatinine Ratio 24.4 H (8-20) Glucose 102 H (70-100) mg/dL Lactic Acid 1.1 (0.5-2.0) mmol/L Calcium 9.5 (8.6-10.3) mg/dL Magnesium 1.8 L (1.9-2.7) mg/dL Total Bilirubin 0.40 (0.2-1.0) mg/dL AST 25 (13-39) U/L ALT 21 (7-52) U/L Alkaline Phosphatase 70 (34-104) U/L Troponin I 0.00 (<0.04) ng/mL Total Protein 6.0 L (6.4-8.9) g/dL Albumin 3.3 (3.2-5.2) g/dL Globulin 2.7 (2-4) g/dL Albumin/Globulin Ratio 1.2 (1-3) TSH 4.70 (0.34-5.60) mcIU/mL Result Diagrams: 09/01/17 12:27 09/01/17 12:27 Lab Statement: Any lab studies that have been ordered have been reviewed, and results considered in the medical decision making process. - Radiology CHEST XRAY Radiology Interpretation Completed By: Radiologist - IMPRESSION: COPD. No active cardiopulmonary disease. Dr Mercado reviewed the report. - EKG 12:30 Cardiac Rate: NL - 61 BPM EKG Interpretation: Left axis deviation. Left anterior fascicular block. Course/Dx Course Of Treatment: Ms. Black had a significant syncopal episode this morning. She was getting out of bed and the next thing she remembers she was in the ambulance. She was found by her partner sitting on the toilet without having pulled down her pants. She has had a flare up of her chronic left low back/sacral pain over the last week or 2. She is feeling improved on arrival here in the emergency department. She was monitored and EKG and labs were checked. Because of the significance of the sudden syncopal episode with no warning, I recommended to the hospitalist group that she be admitted for observation. - Diagnoses Provider Diagnoses: Syncope - Physician Notifications Discussed Care of Patient With: Padma Gomez Time Discussed With Above Provider: 13:45 - She will accept and admit the pt. Discharge - Sign-Out/Discharge Documenting (check all that apply): Discharge/Admit/Transfer - Admit - Discharge Plan Condition: Fair Disposition: ADMITTED TO [facility] - Billing Disposition and Condition Condition: FAIR Disposition: Admitted to [facility] The documentation as recorded by the Mookie garay Tenzin accurately reflects the service I personally performed and the decisions made by me, Sulaiman Mercado MD.
--- NOTE | 2017-09-01 18:27 | RAD ---
Indication: LEFT side back pain. Comparison: March 11, [address] Technique: Noncontrast CT lumbar sacral spine. Multiplanar reformation. Report: Mild LEFT greater than RIGHT basilar dependent atelectasis. Mild RIGHT kidney caliectasis is unchanged. Small volume of free fluid in the partially visualized dependent pelvis. Mild anterior and middle column osteoporotic compression fracture at L1 involving the inferior endplate with only mild dorsal buckling of the middle column is unchanged compared with the 2017 exam. No additional lumbar sacral spine fractures evident. Normal vertebral alignment without spondylolisthesis at any level. T12-L1: Unremarkable disc level for age without acquired spinal stenosis. L1-L2: Mild annular disc bulge and deformity related to the chronic L1 inferior endplate fracture. Negative for significant resulting spinal stenosis. L2-L3: Unremarkable disc level for age without acquired spinal stenosis. L3-L4: Unremarkable disc level for age without acquired spinal stenosis. L4-L5: Annular disc bulge and facet ligamentous hypertrophic arthropathy results in mild acquired central canal stenosis and mild LEFT foraminal stenosis. L5-S1: Advanced disc space narrowing. Dorsal disc bulge osteophyte complex results in only mild impression on the ventral margin of the thecal sac. Disc height loss, vertebral endplate osteophytosis, and posterior element hypertrophic arthropathy results in mild bilateral foraminal stenosis. IMPRESSION: 1. Old L1 anterior and middle column compression fracture. Negative for new lumbar sacral spine fracture. 2. 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 3. Small volume of free fluid in the partially visualized dependent pelvis is new compared with the prior exam..
[2017-09-01 19:48] LABS: Urine Appearance Cloudy; Urine Blood 1+ (Negative); Urine Color Yellow; Urine Ketones Negative (Negative); Urine Protein Negative (Negative); Urine Red Blood Cell 1+(3-5/hpf) (Absent); Urine Specific Gravity 1.008 (1.010-1.030); Urine Urobilinogen Negative (Negative); Urine White Blood Cell 3+(>20/hpf) (Absent)
[2017-09-01] MEDS: Heparin VIAL(*) 5000 UNITS/ML VIAL (FIVE THOUSAND) SUBCUT SCH (21:11)
[2017-09-01] MEDS: Ascorbic Acid TAB* 500 MG PO SCH (21:12)
[2017-09-01] MEDS: Ibuprofen TAB* 200 MG PO SCH (21:12)
[2017-09-01] MEDS: Docusate CAP* 100 MG PO SCH (21:13)
[2017-09-01] MEDS: Magnesium CITRATE* 300 ML BTL PO SCH (21:18)
--- NOTE | 2017-09-01 21:30 | HP ---
CC: Dr. Good * HISTORY AND PHYSICAL: DATE OF ADMISSION: 09/01/17 PRIMARY CARE PROVIDER: Dr. Good. CHIEF COMPLAINT: Syncope. HISTORY OF PRESENT ILLNESS: Therese Black is an 87-year-old female with history of L1 compression fracture and chronic left sciatica leg pain, who stated that her left sciatica pain exacerbated for the past 4 days. She had been using ibuprofen only for the pain. The patient also states that the pain is not that bad and it does not hurt when she sleeps, but it is worse when she stands up. She has a hospital bed and she gets up to a bedside commode usually. Today in the morning, she sat up on her hospital bed and she felt the pain getting more severe. She stated that she felt like she is going to faint and she does not remember what happened next. Her partner heard some noise and when she came in to see what is happening in the bedroom, the patient was sitting on the bedside commode, slumped over, unresponsive. Apparently, she did not regain consciousness until several minutes later when the shark biologist arrived. When she regained consciousness, there was no confusion noted and no incontinence. The patient at baseline is incontinent of urine. The patient is going to be admitted with a diagnosis of syncope. PAST MEDICAL HISTORY: 1. History of incontinence. 2. History of finger fractures on the right in the past. 3. History of thoracic compression fracture. 4. History of L1 compression fracture. 5. History of bilateral cataract surgery. 6. History of arthritis. 7. Intermittent vertigo. 8. Scoliosis. 9. History of right wrist fracture. 10. History of frequent UTIs. CURRENT MEDICATIONS: Include: 1. Ibuprofen 200 mg b.i.d. 2. Vitamin D3 5000 units daily. 3. Vitamin B12 1000 mcg daily. 4. Cod liver oil 1 capsule b.i.d. 5. Chelated zinc 22 mg at bedtime. 6. Vitamin B complex 1 tablet daily. 7. Vitamin C 2000 mg b.i.d. 8. Mag citrate 0.25 teaspoon b.i.d. 9. Vitamin E 400 units b.i.d. 10. Probiotic 1 capsule daily. 11. Cranberry 400 mg daily. 12. Ultram 50 to 100 mg every 6 hours p.r.n. The patient had not been taken it for several weeks now. 13. Compazine 5 mg every 8 hours p.r.n. ALLERGIES: PENICILLIN. FAMILY HISTORY: Positive for father with heart disease, at the age of 57. SOCIAL HISTORY: The patient quit tobacco smoking at the age of 25. She denies any alcohol or drug use. Her ambulation is limited to roller walker. She lives at home with a female partner who is her healthcare proxy, her name is Tasneem Daniel. The patient is a do not resuscitate. REVIEW OF SYSTEMS: Please see history of present illness. In addition to the above mentioned, the patient stated that her back pain has been going for 4 days. It is almost nonexistent when she lies down, but it is much worse when she stands up. It is in the left hip radiating into the back of the left leg. The patient's female partner noted that her urine output had been lower than usual. The patient stated that her appetite and her overall p.o. intake had been unchanged. She denies any fevers, chest pain, or shortness of breath. She noted bilateral lower extremity edema that is much better when she raises her legs. All the remaining 12 systems were reviewed with the patient and were otherwise negative. PHYSICAL EXAMINATION GENERAL: The patient is a pleasant 87-year-old female who is in no acute distress. Alert, awake, oriented x3. VITAL SIGNS: Blood pressure 144/86, please note that the patient's blood pressure when she presented to the hospital was 118/57, heart rate of 76, respiratory rate 17, oxygen saturation 98% on room air, temperature of 98.5. HEENT: Head: Atraumatic, normocephalic. Eyes: Pupils are equal, reactive to light and accommodation. Oropharynx clear. Mucosa moist. NECK: Supple. No JVD. No bruits bilaterally. RESPIRATORY: Clear to auscultation bilaterally. CARDIOVASCULAR: Regular rate and rhythm. No murmur. ABDOMEN: Soft, nontender. Bowel sounds are present in all 4 quadrants. MUSCULOSKELETAL: On evaluation of the back, the patient does not have a point tenderness over the bony prominences of her back including bilateral hips, bilateral pelvic areas, and vertebral bones of thoracic and lumbosacral spine. EXTREMITIES: There is no edema. Pulses +2 bilaterally. No clubbing or cyanosis. NEURO EVALUATION: Speech clear. Cranial nerves II through XII grossly intact. Motor strength is 5/5 bilaterally. The patient's rise of the left leg is limited due to pain in the left hip. SKIN: On evaluation of the skin, no ecchymotic areas or rashes are noted. DIAGNOSTIC STUDIES/LABORATORY DATA: White blood cell count of 9.8, hemoglobin of 13.5, hematocrit of 39, and platelets of 152. Sodium 137, potassium 4.4, chloride 103, carbon dioxide 29, BUN 21, creatinine 0.86. Liver function tests unremarkable. Magnesium of 1.8, TSH of 4.7. Troponin of 0. Urinalysis is pending at the time of dictation. Brain CT is obtained, but the report is pending at the time of dictation. Chest x-ray, impression: "COPD, no active cardiopulmonary disease." The patient's EKG showed normal sinus rhythm with heart rate of 61 beats per minute with negative T-waves in leads III and aVF as well as left anterior fascicular block. Comparing with an EKG from March 2017, the changes are similar apart from that that the patient's T-waves in III and aVF are now negative. ASSESSMENT AND PLAN: 1. Syncope. The patient's orthostatics had not been obtained yet, but she has had low systolic blood pressures initially during her evaluation. At this time , likely it is a vagal syncope. The patient has severe pain when she stood up and then does not remember anything. I suspect she had a vagal response to the pain and she passed out. She also appears intravascularly dry and she is going to be placed on intravenous hydration. I will place her on neuro checks every 4 hours. I will also evaluate the patient's lumbar spine with a CT of the lumbar spine due to history of compression fracture of L1 in the past and now worsening of pain. 2. For DVT prophylaxis, the patient is going to be placed on heparin subcutaneously. 3. The patient's code status is do not resuscitate and it was reconfirmed with the patient. TIME SPENT: Approximately 63 minutes was spent on the admission of this patient , more than half of that time was spent [id number] with the patient during the interview and physical exam. [id number]/[facility] #: [id number] [facility]
[2017-09-02 05:10] LABS: ABS Basophils 0.1 10^3/ul (0-0.2); ABS Eosinophils 0.1 10^3/ul (0-0.6); ABS Lymphocytes 0.6 10^3/ul (1.0-4.8); ABS Monocytes 0.5 10^3/ul (0-0.8); ABS Neutrophils 3.6 10^3/ul (1.5-7.7); ABS Nucleated RBC 0 10^3/ul; Eosinophil % 2.2 % (0-6); Hematocrit 36 % (35-47); Hemoglobin 12.4 g/dl (12.0-16.0); Lymphocyte % 12.3 % (25-47); Mean Corpuscular HGB Conc 34 g/dl (31-36); Mean Corpuscular Hemoglobin 32 pg (27-31); Mean Corpuscular Volume 95 fL (80-97); Mean Platelet Volume 9.4 um3 (7.4-10.4); Nucleated Red Blood Cells % 0.1; Platelet Count 138 10^3/ul (150-450); Red Blood Count 3.83 10^6/ul (4.00-5.40); Red Cell Distribution Width 13 % (10.5-15); White Blood Count 4.9 10^3/ul (3.5-10.8)
[2017-09-02 05:26] LABS: EGFR Non-African American 73.1 (>60)
[2017-09-02] MEDS: Heparin VIAL(*) 5000 UNITS/ML VIAL (FIVE THOUSAND) SUBCUT SCH ×2 (06:07→14:33)
[2017-09-02] MEDS: Ascorbic Acid TAB* 500 MG PO SCH (09:28)
[2017-09-02] MEDS: Ibuprofen TAB* 200 MG PO SCH (09:30)
[2017-09-02] MEDS: Magnesium CITRATE* 300 ML BTL PO SCH (09:32)
[2017-09-02] MEDS: Docusate CAP* 100 MG PO SCH (09:33)
[2017-09-02] MEDS ORDERED: cefTRIAXone(*) 1 GM in NS 0.9% 50 ML* 50 ML IVPB SCH (12:00)
[2017-09-02 13:02] VITALS: BP 132/74
--- NOTE | 2017-09-03 12:08 | DS ---
CC: Dr. Agustin Good * DISCHARGE SUMMARY: DATE OF ADMISSION: 09/01/17. DATE OF DISCHARGE: 09/02/17 PRIMARY CARE PROVIDER: Agustin Good DO. DISCHARGE DIAGNOSES: 1. Syncope, likely of vasovagal origin. 2. Mild dehydration. SECONDARY DIAGNOSES: 1. History of incontinence. 2. History of L1 compression fracture in the past. 3. History of thoracic vertebral compression fracture in the past. 4. History of arthritis. 5. History of vertigo. 6. Scoliosis. 7. History of right wrist fracture. 8. History of frequent urinary tract infections. MEDICATIONS AT DISCHARGE: Unchanged from admission with the an addition of cefdinir 300 mg two times a day for a total of two days starting tomorrow. That is for questionable urinary tract infection was already started to be treated with ceftriaxone during her hospital stay. Many medications are unchanged and include: 1. Ibuprofen 500 mg b.i.d. 2. Vitamin D3 5000 units daily. 3. Vitamins B12 1000 mcg daily. 4. Cod liver oil one capsule b.i.d. 5. Chelated zinc 22 mg at bedtime. 6. Vitamin B complex one tablet daily. 7. Vitamin C 2000 mg b.i.d. 8. Magnesium citrate 0.25 teaspoon b.i.d. 9. Vitamin E 400 units b.i.d. 10. Probiotic one capsule daily. 11. Cranberry 400 mg daily. 12. Ultram 50 to 100 mg every six hours for pain. 13. Compazine 5 mg q.8 hours p.r.n. LABORATORY DATA AND STUDIES PERFORMED DURING HOSPITAL STAY: Included: On 09/02, white blood cell count of 4.9, hemoglobin of 12.4, hematocrit of 36, and platelets of 138. Sodium of 138, potassium 3.8, chloride 106, carbon dioxide 26 , BUN 21, creatinine 0.75. C-reactive protein was 5.6, troponins were negative throughout the hospital stay. TSH was 4.7 on admission. Pelvis x-ray and left hip x-ray. Impression: "Osteopenia. No radiographic evidence of hip fracture. As x-rays may be negative with nondisplaced hip fracture, if there is persistent clinical concern, recommend consideration of MRI ". Lumbar spine CT obtained on 09/01/17. Impression: "Old L1 anterior and middle column compression fracture, negative for new lumbosacral spine fracture. Multilevel degenerative spondylosis and facet joint osteoarthritis with resulting mild acquired stenosis at this time without significant interval change. Small volume of free fluid in the partially visualized dependent pelvis is new compared to the prior exam". Urinalysis showed +3 esterase, +3 wbc's, absent bacteria, +1 rbc's, and no nitrite. HOSPITALIZATION COURSE: Therese Black is an 87-year-old female with history of vasovagal syncope in the past, who presented to the hospital after a syncopal episode on 09/01/17. For further details of the patient's hospitalization, please see history and physical dictated by myself on admission. Shortly, it appeared to be a vasovagal syncope as the patient complained of severe pain from her chronic sciatica when she was getting out of bed and then passed out. Nevertheless, the patient was observed on air sampling and monitoring bed with no marked arrhythmias. She appeared to be mildly dehydrated and was placed on intravenous fluids. She complains of left-sided sciatica symptoms due to her history of L1 compression fracture, a CT of the lumbosacral spine was obtained and was as above mentioned. We also obtained x-rays of the left hip and that was unremarkable. By the time of discharge, the patient ambulated with a roller walker at baseline. The patient has a history of venostasis edema and was recommended compression stockings. The patient was educated about the need for sitting up for a few seconds and standing up for a few seconds and standing up for a few seconds next to the bed prior to her venturing to start walking. She was recommended to drink plenty of liquids. The patient's urinalysis was questionable for urinary tract infection and she was started on ceftriaxone in the hospital. She is rather cautious in treating herself with antibiotics. Due to her what appears to be asymptomatic UTI, the patient is going to be placed on three days of treatment with a third generation cephalosporin. Due to that, she is going to be discharged on the two remaining days worth of cefdinir at discharge. At discharge, the patient is recommended to followup with her primary care provider in approximately 4 to 7 days. Please note that this is a short summary of the patient's hospitalization. Please refer to further medical records for details. TIME SPENT: Approximately 35 minutes were spent in patient's discharge. [id number]/[facility] #: [id number] [facility]ITAL[facility]
== END 2017-09-02 14:53 | disposition home or self-care (01) ==
LOC: ED 11:23 → MEDTELE 13:45 → INTOOBSV 13:45
PROVIDERS: ADMIT Internal Medicine; ATTEND Internal Medicine
DX: R55 Syncope and collapse (principal); E86.0 Dehydration; R42 Dizziness and giddiness; R53.1 Weakness; R53.83 Other fatigue; Z87.891 Personal history of nicotine dependence; Z87.448 Personal history of other diseases of urinary system; Z87.81 Personal history of (healed) traumatic fracture; Z87.39 Personal history of other diseases of the musculoskeletal system and connective tissue; Z87.440 Personal history of urinary (tract) infections; M41.9 Scoliosis, unspecified; Z88.0 Allergy status to penicillin; Z98.41 Cataract extraction status, right eye; Z98.42 Cataract extraction status, left eye
CPT/HCPCS: 36415; 70450; 71045; 72131; 80048; 80053; 81003; 81015; 83605; 83735; 84443; 84484; 85025; 86140; 87077; 87086; 87186; 93005; 96374; 99284; A9270-GY; G0378; G8978-GP-CH; G8979-GP-CH; G8980-GP-CH; J0696; J1644; J3475

== ENCOUNTER 2018-09-08 13:30 | Inpatient (IN) | payer MEDICARE ==
--- NOTE | 2018-09-08 13:44 | ED ---
Back Pain - HPI Summary HPI Summary: The patient is an 88 y/o F arriving by ambulance to [facility] accompanied by partner with a chief complaint of gradually worsening low back pain that radiates to the neck starting three weeks ago. Per partner, the patient had this onset of pain after she twisted her back. Since then, the patient has been experiencing increased pain, especially on the right side, and decreased strength in the back despite multiple interventions including a hospital bed, a recliner chair, a visiting nurse, a PT, and Tramadol. The pain is currently rated 10/10 in severity. The sharp pain is aggravated by movement and alleviated by rest. She denies lower extremity pain, abd pain, and incontinence of bowel or bladder. She is usually able to get out of the chair, but she was unable to today. Hx of syncope, GERD, arthritis, thoracic compression fx, scoliosis, osteoporosis. Former smoker, rare EtOH, no substance use. - History of Current Complaint Stated Complaint: BACK PAIN PER EMS Time Seen by Provider: 09/08/18 13:36 Hx Obtained From: Patient, Family/Counselor Manager - partner Onset/Duration: Gradual Onset, Lasting Weeks - three, Still Present, Worse Since Onset/Duration: Started Weeks Ago, Still Present Timing: Lasting Weeks Back Pain Location: Is Diffuse - low back to neck Severity Initially: Moderate Severity Currently: Severe Pain Intensity: 10 Pain Scale Used: 0-10 Numeric Character: Sharp Aggravating Symptom(s): Movement Alleviating Symptom(s): Rest Associated Signs And Symptoms: Positive: Other - POSITIVE: decreased strength in the back ; NEGATIVE: lower extremity pain, abd pain, incontinence of bowel or bladder - Allergies/Home Medications Allergies/Adverse Reactions: Allergies Allergy/AdvReac Type Severity Reaction Status Date / Time Penicillins Allergy Swelling Verified 09/08/18 14:03 Home Medications: Home Medications Arnica Flower Extract [Arnica Lg] 1 liq PO DAILY PRN 09/08/18 [History Confirmed 09/08/18] Bisacodyl SUPP* [Dulcolax Supp*] 10 mg HI DAILY PRN 09/08/18 [History Confirmed 09/08/18] Caprum Metalicum 1 tab PO DAILY 09/08/18 [History Confirmed 09/08/18] Cholecalciferol (Vitamin D3) [[place] Vitamin D3] 10 unit PO DAILY 09/08/18 [ History Confirmed 09/08/18] Cranberry Fruit [Cranberry] 450 mg PO DAILY 09/08/18 [History Confirmed 09/08/18 ] Diclofenac 1% GEL (NF) [Voltaren 1% GEL (NF)] 1 applic TOPICAL QID PRN 09/08/18 [History Confirmed 09/08/18] L. Acidophilus/Pectin, Fertile [Acidophilus Capsule] 1 cap PO DAILY 09/08/18 [ History Confirmed 09/08/18] Lecithin, Soy [Lecithin] 1,200 mg PO BID 09/08/18 [History Confirmed 09/08/18] Senna TAB* [Senokot TAB*] 1 tab PO DAILY PRN 09/08/18 [History Confirmed ] Tetrahydrozoline HCl [Eye Drops] 0.05 % BOTH EYES DAILY PRN 09/08/18 [History Confirmed 09/08/18] Zygest 1 cap PO TID 09/08/18 [History Confirmed 09/08/18] guaiFENesin [Cough Syrup] 10 ml PO QID PRN 09/08/18 [History Confirmed 09/08/18] traMADol TAB* [Ultram*] 50 mg PO Q6HR PRN 09/08/18 [History Confirmed 09/08/18] PMH/Surg Hx/FS Hx/Imm Hx Endocrine/Hematology History: Denies: Hx Anticoagulant Therapy, Hx Blood Disorders, Hx Diabetes, Hx Sickle Cell Disease, Hx Thyroid Disease Cardiovascular History: Reports: Hx Syncope Denies: Hx Hypercholesterolemia, Hx Hypertension, Hx Peripheral Vascular Disease, Hx Valvular Heart Disease Respiratory History: Denies: Hx Asthma, Hx Chronic Obstructive Pulmonary Disease (COPD), Hx Cystic Fibrosis, Hx Pneumonia, Hx Pulmonary Embolism, Other Respiratory Problems /Disorders GI History: Reports: Hx Gastroesophageal Reflux Disease Denies: Hx Ulcer, Other GI Disorders History: Reports: Other Problems/Disorders - multiple UTI's Denies: Hx Acute Renal Failure, Hx Benign Prostatic Hyperplasia, Hx Dialysis Musculoskeletal History: Reports: Hx Arthritis, Hx Orthopedic Injury - right wrist fx, thoracic compression fx, Hx Osteoporosis, Hx Scoliosis Sensory History: Reports: Hx Cataracts - removed, Hx Contacts or Glasses Denies: Hx Eye Injury, Hx Eye Prosthesis, Hx Glaucoma, Hx Legally Blind, Hx Macular Degeneration, Hx Vision Problem, Hx Deafness, Hx Hearing Aid, Hx Hearing Problem, Other Sensory Impairments Opthamlomology History: Reports: Hx Cataracts - removed, Hx Contacts or Glasses Denies: Hx Eye Injury, Hx Eye Prosthesis, Hx Glaucoma, Hx Legally Blind, Hx Macular Degeneration, Hx Vision Problem, Other Sensory Impairments Neurological History: Reports: Hx Headaches Denies: Hx Dementia, Hx Migraine, Hx Seizures, Hx Spinal Cord Injury, Hx Transient Ischemic Attacks (TIA) Psychiatric History: Reports: Hx Anxiety, Hx Depression, Hx Panic Disorder Denies: Hx Suicide Attempt, Hx of Violent Episodes Against Others - Surgical History Surgery Procedure, Year, and Place: APPENDIX- 13 YRS OLD. LEFT EAR PINNED - 22 YRS OLD. WRIST SURGERY - 15 YRS AGO. BILAT CATERACTS Hx Anesthesia Reactions: No - N/V WITH APPENDIX SURGERY DUE TO GAS Infectious Disease History: Denies: Hx Hepatitis, Hx Human Immunodeficiency Virus (HIV), Hx of Known/ Suspected MRSA, Hx Shingles, Hx Tuberculosis, Hx Known/Suspected VRE, Hx Known/ Suspected VRSA, History Other Infectious Disease - Family History Known Family History: Positive: Cardiac Disease, Other - Negative: malignant hyperthermia, anesthesia reaction Negative: Diabetes - Social History Alcohol Use: Rare Alcohol Amount: glas of wine about 7 times a month Hx Substance Use: No Substance Use Type: Reports: None Hx Tobacco Use: Yes Smoking Status (MU): Former Smoker Type: Cigarettes Do You Chew or Dip Tobacco: No Amount Used/How Often: dates are estimates Have You Chewed or Dipped Tobacco in the LAST YEAR: No Have You Smoked in the Last Year: No Review of Systems Positive: Other - NEGATIVE: bowel incontinence. Negative: Abdominal Pain Negative: incontinence Positive: Other - POSITIVE: increasing pain extending from lower back to neck, decreased strength; NEGATIVE: lower extremity pain Positive: Weakness - generalized All Other Systems Reviewed And Are Negative: Yes Physical Exam - Summary Physical Exam Summary: Appearance: Frail, elderly woman, lying comfortably in the stretcher, no acute distress Skin: Warm, dry, no obvious rash Eyes: sclera anicteric, no conjunctival pallor ENT: mucous membranes moist, pharynx appears normal Neck: Supple, nontender Respiratory: Clear to auscultation, no signs of respiratory distress Cardiovascular: Normal S1, S2. No murmurs. Normal distal pulses in tibial and radial bilaterally. Abdomen: Soft, nontender, normal active bowel sounds present Musculoskeletal: Marked kyphosis, somewhat diffuse tenderness of the soft tissues in the back as well as over the spine, doesn't localize to a particular level. Neurological: A&Ox3, awake and alert, mentation is normal, speech is fluent and appropriate Psychiatric: affect is normal, does not appear anxious or depressed Triage Information Reviewed: Yes Vital Signs Reviewed: Yes Diagnostics - Laboratory Result Diagrams: 09/09/18 05:23 09/08/18 14:23 Lab Statement: Any lab studies that have been ordered have been reviewed, and results considered in the medical decision making process. - Radiology Lumbar Spine XR Radiology Interpretation Completed By: Radiologist Summary of Radiographic Findings: 1. No significant change in moderate anterior and middle column osteoporotic compression fracture at the L1 vertebral body. Unchanged minimal dorsal bulging of the middle column without suggestion of significant compromise of the central canal. 2. No additional fracture evident. 3. Degenerative spondylosis with advanced L5-S1 disc space narrowing. Facet joint osteoarthritis most prominent at L4-L5 and L5-S1. 4. Unremarkable paraspinal soft tissue contours. ED physician has reviewed this report. Thoracic Spine XR Radiology Interpretation Completed By: Radiologist Summary of Radiographic Findings: 1. New severe anterior and middle column T8 and interval progression of moderately severe T9 osteoporotic compression fractures compared with the March 11, 2017 exam. No definitive gross cortical disruption or trabecular impaction evident to indicate this represents an acute or subacute fracture despite being new compared with the 2017 CT. Associated increased thoracic kyphosis. Negative for spondylolisthesis at any level. 2. Unremarkable paraspinal soft tissue contours. ED physician has reviewed this report. Re-Evaluation - Re-Evaluation First Eval Re-Evaluation Time: 14:42 Comment: I examined the patient's back. I discussed admission with the patient. Back Pain Course/Dx - Course Course Of Treatment: The patient is an 88 y/o F arriving by ambulance to [facility] accompanied by partner with a chief complaint of gradually worsening low back pain that radiates to the neck starting three weeks ago after twisting her back with worsening today as she couldnt get out of her chair. There is increased pain with decreased strength in the back despite multiple interventions including a hospital bed, a recliner chair, a visiting nurse, a PT, and Tramadol. She denies lower extremity pain, abd pain, and incontinence of bowel or bladder. Hx of syncope, GERD, arthritis, thoracic compression fx, scoliosis, osteoporosis. Former smoker, rare EtOH, no substance use. Upon physical exam, the patient appears to be a frail, elderly woman lying comfortably in the stretcher in no acute distress exhibited marked kyphosis, somewhat diffuse tenderness of the soft tissues in the back as well as over the spine which doesn 't localize to a particular level. In the ED course, the patient was administered Zofran, Morphine, and Oxycodone Hcl. Blood work reveals MCH of 32, absolute lymphs of 0.4, chloride of 100, and calcium of 10.5. Lumbar Spine XR impression: 1. No significant change in moderate anterior and middle column osteoporotic compression fractures at the L1 vertebral body. Unchanged minimal dorsal bulging of the middle column without suggestion of significant compromise of the central canal. 2. No additional fracture evident. 3. Degenerative spondylosis with advanced L5-S1 disc space narrowing. Facet joint osteoarthritis most prominent at L4-L5 and L5-S1. 4. Unremarkable paraspinal soft tissue contours. Thoracic Spine XR impression: 1. New severe anterior and middle column T8 and interval progression of moderately severe T9 osteoporotic compression fractures compared with the March 11, 2017 exam. No definitive gross cortical disruption or trabecular impaction evident to indicate this represents an acute or subacute fracture despite being new compared with the 2017 CT. Associated increased thoracic kyphosis. Negative for spondylolisthesis at any level. 2. Unremarkable paraspinal soft tissue contours. At 1447, I discussed the patient's case with Dr. Fall, hospitalist, and she accepts the patient for admission. She is diagnosed with severe back pain and spinal stenosis. The patient and her partner are agreeable with admission. - Diagnoses Provider Diagnoses: Severe back pain, Spinal stenosis - Provider Notifications Discussed Care Of Patient With: Annel Fall - hospitalist Time Discussed With Above Provider: 14:47 Instructed by Provider To: Admit As Inpatient - I discussed the patient's case with Dr. Fall, and she accepts the patient for admission. Discharge - Sign-Out/Discharge Documenting (check all that apply): Patient Departure - Patient is accepted for admission by Dr. Fall. Patient Received Moderate/Deep Sedation with Procedure: No - Discharge Plan Condition: Stable Disposition: ADMITTED TO [facility] - Billing Disposition and Condition Condition: STABLE Disposition: Admitted to [facility] - Attestation Statements Document Initiated by Scribe: Yes Documenting Scribe: Sandra Simmons Provider For Whom Scribe is Documenting (Include Credential): Dr. Sulaiman Lewis MD Scribe Attestation: I, Sandra Simmons, scribed for Dr. Sulaiman Lewis MD on 09/11/18 at 0421. Scribe Documentation Reviewed: Yes Provider Attestation: The documentation as recorded by the Sandra garay accurately reflects the service I personally performed and the decisions made by me, Dr. Sulaiman Lewis MD Status of Scribe Document: Viewed
[2018-09-08] MEDS ORDERED: oxyCODONE TAB* 5 MG TAB PO ONE (13:46)
[2018-09-08 14:45] LABS: Hematocrit 45 % (35-47); Hemoglobin 15.4 g/dL (12.0-16.0); Mean Corpuscular HGB Conc 34 g/dL (31-36); Mean Corpuscular Hemoglobin 32 pg (27-31); Mean Corpuscular Volume 92 fL (80-97); Mean Platelet Volume 9.9 fL (7.4-10.4); Platelet Count 181 10^3/uL (150-450); Red Blood Count 4.84 10^6 /uL (3.70-4.87); Red Cell Distribution Width 14 % (10-15); White Blood Count 5.8 10^3/uL (3.5-10.8)
[2018-09-08] MEDS ORDERED: Morphine 4 MG/ML VIAL (1 ml) 4 MG/ML VIAL IV ONE (14:47)
[2018-09-08 15:01] LABS: Albumin 3.9 g/dL (3.2-5.2); Albumin/Globulin Ratio 1.1 (1-3); C Reactive Protein 6.24 mg/L (<8.01); Calcium 10.5 mg/dL (8.6-10.3); EGFR African American 80.7 (>60); EGFR Non-African American 66.7 (>60); Globulin 3.5 g/dL (2-4); Potassium 4.1 mmol/L (3.5-5.0); Total Bilirubin 0.5 mg/dL (0.2-1.0); Total Protein 7.4 g/dL (6.4-8.9)
[2018-09-08] MEDS ORDERED: Ondansetron INJ* 2 MG/ML VIAL ONE (15:07)
[2018-09-08] MEDS ORDERED: Ondansetron INJ* 2 MG/ML VIAL IV ONE (15:11)
[2018-09-08] MEDS ORDERED: Ondansetron INJ* 2 MG/ML VIAL IV PRN (15:53)
[2018-09-08] MEDS ORDERED: Morphine INJ* 2 MG/ML 1 ML SYRINGE (TWO MG - NEW SYRINGE VERSION) IV PRN (15:53)
[2018-09-08] MEDS ORDERED: NS 0.9% 1000 ML** 1,000 ML IV SCH (16:00)
[2018-09-08] MEDS ORDERED: hydrALAZINE IV* 20 MG/ML VIAL IV SLOW PU PRN (16:04)
[2018-09-08 16:05] LABS: ABS Eosinophils 0.1 10^3/ul (0-0.6); ABS Lymphocytes 0.4 10^3/ul (1.0-4.8); ABS Monocytes 0.3 10^3/ul (0-0.8); Eosinophil % 1.7 %; Lymphocyte % 6.5 %; Nucleated Red Blood Cells % 0.1
[2018-09-08] MEDS: Enoxaparin(*) 40 MG/0.4 ML SYR SUBCUT SCH (19:03)
--- NOTE | 2018-09-08 19:22 | HP ---
CC: Dr. Prerna Avery * ADMISSION HISTORY AND PHYSICAL: DATE OF ADMISSION: 09/08/18 PRIMARY CARE PROVIDER: Dr. Prerna Avery. ATTENDING PHYSICIAN: Annel Fall MD * (dictated by MIRZA Lara ). CHIEF COMPLAINT: Intractable back pain. HISTORY OF PRESENT ILLNESS: Ms. Black is an 88-year-old female with a past medical history of compression fractures in L1 and T9 who presented to the ER today with complaints of intractable back pain. The patient states that in the beginning of August, she was sitting at her table. She rotated in her chair and felt a tug and developed a small amount of discomfort. She notes that this has progressively worsened since then. She consulted her primary care provider shortly after the back pain started and her primary care provider started her on tramadol, which she has been taking since 08/19/18. She notes that this has not helped and that her back pain has progressed to the point of difficulty with going from seated to standing, painful standing, difficulty with walking. The patient states that she needs assistance with all of these activities. She does walk with a walker at baseline. The patient has had VNS since Friday, which included physical therapy and occupational therapy x1 visit. The patient continues to have back pain in the majority of the length of her spine from approximately between the shoulder blades down to the sacral area. She also complains of left paraspinous pain in this area. She notes the pain is a steady dull pain that is worsened with movements. She has intermittent spasms and intermittent shocks of pain. She states that the pain does not radiate anywhere including upper and lower extremities. She denies chest pain, cough, shortness of breath, fever, chills, abdominal pain, nausea, vomiting, diarrhea. She notes that she has a history of urinary incontinence for years. She denies incontinence of bowel, but does note that she suffers from constipation; last bowel movement was 2 days ago. She denies saddle anesthesia. She denies numbness and tingling in the upper and lower extremities. She denies fall or injury to the back area. She does complain of weakness. She also notes bilateral lower extremity edema, which has not changed and is chronic. In the ER, the patient received full workup, which included pain management with morphine and oxycodone. She also received lab work and x-ray imaging of the lumbar and thoracic spine. She is noted to have old fractures in L1 with no change, interval progression of T9 fracture, and new T8 fracture. Due to the findings on x- ray and the patient's intractable back pain, the hospitalist team was asked to evaluate and admit the patient. PAST MEDICAL HISTORY: 1. Urinary incontinence. 2. T9, L1 compression fractures. 3. Arthritis. 4. History of vertigo. 5. Scoliosis. 6. Frequent UTIs. 7. Right wrist fracture. PAST SURGICAL HISTORY: 1. Appendectomy in approximately 1944. 2. Left ear cosmetic surgery. HOME MEDICATIONS: 1. Arnica flower extract 1 liquid p.o. daily p.r.n. for pain. 2. Ascorbic acid 500 mg p.o. daily. 3. Cuprum metallicum 1 tab p.o. daily. 4. Cholecalciferol 10 units p.o. daily. 5. Cranberry fruit 450 mg p.o. daily. 6. Diclofenac 1% gel 1 application topically 4 times a day p.r.n. for pain. 7. Guaifenesin 10 mL p.o. 4 times a day p.r.n. for cough. 8. L-Acidophilus/Pectin, [place] 1 cap p.o. daily. 9. Lecithin, soy 1200 mg p.o. b.i.d. 10. Tetrahydrozoline HCL 0.05% both eyes daily p.r.n. for dryness. 11. Tramadol 50 mg p.o. q.6 hours p.r.n. for pain. 12. Vitamin E cap 400 units p.o. b.i.d. 13. Zygest 1 cap p.o. t.i.d. DRUG ALLERGIES: PENICILLIN, swelling. FAMILY HISTORY: Positive for heart disease. Negative for diabetes mellitus, cancer, CVA. SOCIAL HISTORY: The patient notes that she is a former smoker. She states that she smoked approximately 1 pack per day for approximately 10 years from the ages of 18 to approximately 28. She no longer uses alcohol. She is retired. In the event that she is unable to make her own medical decisions, she has appointed her partner and healthcare proxy, Ed Daniel, to be her surrogate decision maker. PHYSICAL EXAMINATION GENERAL: Ms. Black is a well-developed, well-nourished, thin 88-year-old white female who is lying in her bed with the head of bed elevated. She is drowsy and dozes off frequently. She has pain with movements and therefore, does not move or change positions often. She wakes easily and attempts to answer questions, but is noted to be somewhat sedated from opiate medication. She is cooperative and appropriate. VITAL SIGNS: Temperature 98.3 temporal, heart rate 70, respiratory rate 14, oxygen saturation 97% on room air, blood pressure 191/98. HEENT: PERRL. Extraocular movements intact. Oral mucous membranes are moist without lesions. Hearing is grossly intact. RESPIRATORY: Symmetrical chest expansion without use of accessory muscles. Breath sounds are clear bilaterally anteriorly without wheeze, rhonchi, or rubs. CARDIOVASCULAR: Regular rate and rhythm with S1, S2 present without murmurs, rubs, clicks, or gallops. ABDOMEN: Flat. Bowel sounds noted in all quadrants. The abdomen is soft. There is mild tenderness to palpation throughout. MUSCULOSKELETAL: The patient is unable to move for thorough evaluation of the T - and L-spine, but does have mild tenderness to palpation throughout the thoracic and L-spine. Movement is difficult and painful. EXTREMITIES: Skin is warm and smooth bilaterally without clubbing or cyanosis. The patient is noted to have 1+ pitting edema to bilateral lower extremities. Straight leg raise positive bilaterally. NEURO: The patient is awake, but dozes off frequently. She awakes easily. She is oriented x3. Cranial nerves are grossly intact. DIAGNOSTIC STUDIES/LAB DATA: Thoracic spine x-ray on 09/08/18, impression: New severe anterior and middle column T8 and interval progression of moderately severe T9 osteoporotic compression fractures compared with 03/11/17. No definitive gross cortical disruption or trabecular impaction evident to indicate this represents an acute or subacute fracture despite being new compared with the 2017 CT. Associated increased thoracic kyphosis, negative for spondylolisthesis at any level. Unremarkable paraspinal soft tissue contours. L spine x-ray on 09/08/18, impression: No significant change in moderate anterior and middle column osteoporotic compression fracture at the L1 vertebral body, unchanged minimal dorsal bulging of the middle column without suggestion of significant compromise of the central canal, no additional fracture evident, degenerative spondylosis with advanced L5-S1 disk space narrowing, facet joint osteoarthritis most prominent at L4-L5 and L5-S1, unremarkable paraspinal soft tissue contours. ASSESSMENT AND PLAN: Ms. Black is an 88-year-old female with a past medical history significant for compression fractures of T9 and L1, chronic urinary incontinence, and arthritis who presented to the ER today with intractable back pain and was noted to have T8 compression fracture and interval worsening of T9 compression fracture. Hospitalist team was asked to evaluate the patient for admission. The patient will be admitted observation for: 1. T8 compression fracture, interval worsening of T9 compression fracture. The patient continues to have intractable back pain that limits movement and ADLs. She was given morphine and Roxicodone in the ER, which did help to control the pain, although she does note that she is feeling very sedated from these medications. The patient will receive acetaminophen [id number]. Percocet and low-dose morphine have been ordered with parameters to hold for signs and symptoms of sedation. Flexeril has been ordered, as has Zofran. PT and OT have been ordered. Neurosurgery, Dr. Martinez, has been consulted and notified. CT of the thoracic and lumbar spine have been ordered. 2. Hypertension. The patient was noted to be markedly hypertensive in the ER. It is likely that this is due to pain, although when she was evaluated, her pain appeared to be relatively well controlled, she was frequently dozing off, and her blood pressure remained high. I will start the patient on p.r.n. hydralazine for SBP greater than 160. Vital signs will be obtained q.4 hours and we will monitor need for addition of antihypertensive medications as pain begins to be more controlled. 3. Hypercalcemia. The patient is noted to have a calcium of 10.5, unsure if this is due to hypovolemia. Gentle IV fluids at 75 cc per hour x1 bag ordered. Intact PTH, vitamin D ordered. 4. DVT prophylaxis. According to the DVT Risk Assessment, the patient scores 3 , which places her at high risk. She will be placed on Lovenox subcu q.24 hours. 5. FEN. Heart-healthy diet. Normal saline at 75 cc per hour x1 bag. 6. Code status. DNR. MOLST updated. TIME SPENT: Approximately 60 minutes were spent on this admission, greater than half of that time was spent with the patient and her partner discussing plan. MIRZA LARA [id number]/[facility] #: [id number] [facility] MEDICAL CENTERRichie
--- NOTE | 2018-09-08 19:23 | CONSULT ---
Consult Consult: Subjective: 88 y/o female JASON who is a poor historian PTW with acute back pain , which thinks stated 2 -3 days. She reports increased pain with standing and walking x 2 -3 days, but denies any recent trauma or falls. She has notice progressive weakness in extremities, she admits to having some issues with balance but denies falling. Patient reports history of chronic urinary incontinence for several years, denies bowel incontinence. At time of consult patient did have any family or partner with her. PMH: Dementia HTN Meds: See Chart Social History: denies tobacco use denies ETOH use denies Drug use Surgical history: patient unable to recall Objective: Vital Signs - 12 hr Temp Pulse Resp BP Pulse Ox 09/08/18 17:29 70 196/88 93 09/08/18 17:26 97.9 F 68 16 196/92 93 09/08/18 17:21 71 196/92 94 09/08/18 17:13 80 97 09/08/18 16:21 71 148/99 95 09/08/18 16:00 68 90 09/08/18 15:29 70 214/95 92 09/08/18 15:07 69 191/98 90 09/08/18 15:00 73 96 09/08/18 14:58 14 09/08/18 14:29 70 191/98 97 09/08/18 14:18 69 99 09/08/18 13:40 73 212/108 98 09/08/18 13:37 98.3 F 71 18 212/108 98 Physical Exam limited patient uncooperative General: Patient laying flat in bed is agitated Neuro: GCS 15, A&O x 2, CN II - XII grossly intact, EOM intact. sensation intact. UPE motor strength unable to access LE motor strength decreased with hip flexion/extension 4-/5, EHL 5/5 bilateral sensation intact with light and dull touch Assesment: 88 y/o female with c/o acute low back pain x 2 -3 days, progressive extremity weakness. She has history of wedge deformities of T8, T9 also L1, new CT scans demonstrated possible increased compression of previous fractures of T8 and T9, L1 is unchanged from previous study. Plan: Recommend MRI of thoracic and lumbar spine to evaluate acuity of fractures, team from MRI attempted to take patient for imaging, but she refused. Follow up when patient after imaging is complete.
[2018-09-08] MEDS: Cyclobenzaprine TAB* 10 MG PO PRN (21:01)
[2018-09-09] MEDS: Acetaminophen TAB* 325 MG PO PRN (06:10)
[2018-09-09 06:40] LABS: Hematocrit 38 % (35-47); Hemoglobin 13.2 g/dL (12.0-16.0); Mean Corpuscular HGB Conc 35 g/dL (31-36); Mean Corpuscular Hemoglobin 32 pg (27-31); Mean Corpuscular Volume 91 fL (80-97); Mean Platelet Volume 10.4 fL (7.4-10.4); Platelet Count 166 10^3/uL (150-450); Red Blood Count 4.18 10^6 /uL (3.70-4.87); Red Cell Distribution Width 14 % (10-15); White Blood Count 5.2 10^3/uL (3.5-10.8)
[2018-09-09 08:39] LABS: ABS Lymphocytes 0.5 10^3/ul (1.0-4.8); ABS Monocytes 0.5 10^3/ul (0-0.8); ABS Neutrophils 4.1 10^3/ul (1.5-7.7); Eosinophil % 0.8 %; Large Platelets Present; Lymphocyte % 9.7 %
--- NOTE | 2018-09-09 09:09 | PN ---
Progress Note - Progress Note Date of Service: 09/09/18 SOAP: Subjective: 88 y/o female with c/o acute low back pain with standing and walking. Has PMH of osteoporosis, with previous fractures at T8, T9 and L1, newest CT shows possible acute enhancement of previous fractures. Today patient pain is better , her pain is better managed. She currently has MRI pending to determine age of the fracture. Objective: Vital Signs - 12 hr Temp Pulse Resp BP Pulse Ox 09/09/18 03:00 97.7 F 81 20 138/62 99 09/08/18 23:45 16 09/08/18 23:10 18 09/08/18 22:56 18 09/08/18 22:49 97.9 F 92 20 134/89 97 09/08/18 21:01 16 General: Patient laying in bed elevated, NAD Neuro: GCS 15, CN II - XII, A&O x 3 Motor strength UPE 4/5 bilate, LE motor strength 4/5 bilat Assessment: 88 y/o female with previous compression fractures at T8, T9, with possible acute components. Fractures are more likely pathologic as result of osteoporosis. Plan: Follow up MRI Keep patient on bed rest Dr. Martinez has discussed treatment conservative versus surgical intervention. Will talk more after MRI is completed.
[2018-09-09] MEDS: Lactobacillus Acidophilus* 1 TAB PO SCH (11:20)
[2018-09-09] MEDS: Cyclobenzaprine TAB* 10 MG PO PRN (11:21)
[2018-09-09] MEDS: oxyCODONE/Acetamin 5/325 MG* TAB PO PRN (11:22)
[2018-09-09] MEDS ORDERED: LORazepam INJ* 2 MG/ML 1 ML VIAL IV PUSH PRN (13:20)
[2018-09-09] MEDS ORDERED: Lorazepam PYXIS KEY PRN (13:20)
[2018-09-09] MEDS ORDERED: Morphine INJ* 2 MG/ML 1 ML SYRINGE (TWO MG - NEW SYRINGE VERSION) IV PRN (13:20)
[2018-09-09 13:21] LABS: Urine Appearance Turbid; Urine Bacteria Absent (Absent); Urine Bilirubin Negative (Negative); Urine Blood 2+ (Negative); Urine Color Yellow; Urine Glucose Negative (Negative); Urine Ketones Negative (Negative); Urine Nitrite Negative (Negative); Urine Protein 1+(30 mg/dL) (Negative); Urine Red Blood Cell 3+(>10/hpf) (Absent); Urine Specific Gravity 1.008 (1.010-1.030); Urine Squamous Epithelial Cell Present (Absent); Urine Urobilinogen Negative (Negative); Urine White Blood Cell 3+(>20/hpf) (Absent)
--- NOTE | 2018-09-09 14:39 | PN ---
Subjective Date of Service: 09/09/18 Interval History: Admitted yesterday. Pain controlled when resting in bed but severe on movement. Also reporting no BM for 2 days. Pt amenable to trying MRI again with careful assistance from partner and friend , and with pre-medication . Objective Active Medications: Acetaminophen (Tylenol Tab*) 975 mg PO Q8H PRN PRN Reason: FEVER/PAIN Last Admin: 09/09/18 06:10 Dose: 975 mg Cyclobenzaprine HCl (Flexeril Tab*) 10 mg PO TID PRN PRN Reason: SPASMS Last Admin: 09/09/18 11:21 Dose: 10 mg Enoxaparin Sodium (Lovenox(*)) 40 mg SUBCUT Q24H ZELDA Last Admin: 09/08/18 19:03 Dose: Not Given Hydralazine HCl (Apresoline Iv*) 5 mg IV SLOW PU Q6H PRN PRN Reason: Systolic Bp Greater Than: 160 Last Admin: 09/08/18 18:59 Dose: 5 mg Lactobacillus Rhamnosus (Lactobacillus Acidophilus*) 1 tab PO DAILY ZELDA Last Admin: 09/09/18 11:20 Dose: 1 tab Lorazepam (Ativan Inj*) 0.5 mg IV PUSH ONCE PRN PRN Reason: prior to MRI Miscellaneous (Ativan Pyxis Spence) 1 ea N/A .ATIVAN IV SPENCE PRN PRN Reason: PYXIS SPENCE Morphine Sulfate (Morphine Inj (Syringe))*) 2 mg IV Q4H PRN PRN Reason: PAIN - MILD Ondansetron HCl (Zofran Inj*) 4 mg IV Q4H PRN PRN Reason: NAUSEA/VOMITING Oxycodone/Acetaminophen (Percocet 5/325 Tab*) 1 tab PO Q4H PRN PRN Reason: Pain Last Admin: 09/09/18 11:22 Dose: 1 tab Polyethylene Glycol/Electrolytes (Miralax*) 17 gm PO DAILY PRN PRN Reason: CONSTIPATION Senna (Senokot Tab*) 1 tab PO BEDTIME PRN PRN Reason: if no BM during day Vital Signs - 8 hr 09/09/18 09/09/18 09/09/18 08:28 11:21 11:22 Temperature 98.1 F Pulse Rate 85 Respiratory 16 18 18 Rate Blood Pressure 128/58 (mmHg) O2 Sat by Pulse 97 Oximetry Oxygen Devices in Use Now: None Appearance: elderly woman in NAD; alert and interactive; pleasant Eyes: No Scleral Icterus Ears/Nose/Mouth/Throat: Clear Oropharnyx, Mucous Membranes Moist Neck: NL Appearance and Movements; NL JVP, Trachea Midline Respiratory: - - clear anteriorly Cardiovascular: RRR Abdominal: NL Sounds; No Tenderness; No Distention Extremities: - - 1+ edema fci up shins Skin: No Rash or Ulcers Neurological: Alert and Oriented x 3, NL Sensation, - - 4/5 hip flexion b/l, 4/ 5 ankle flexion and extension; elbow flex/ex 5/5/ b/l Result Diagrams: 09/09/18 05:23 09/08/18 14:23 Assess/Plan/Problems-Billing Assessment: 88W with T8-L1 compression fractures, scoliosis, frequent UTIs and incontinence , presents with worsening back pain and leg weakness, found with CT concerning for worsened compression fractures of T8/9, pending further work up. - Patient Problems (1) Thoracic compression fracture Comment: Pending MRI before NSGY can make further recommendations regarding treatment and PT. - pain control with APAP RTC, Percocent for moderate pain, IV morphine for severe pain - bowel regimen (2) Lumbar compression fracture Comment: Was unable to tolerate brace previously. Pending MRI now for possible progression of fractures. Appreciate NSGY consult. Can have PT when cleared. (3) DVT prophylaxis Comment: Kayla (4) DNR (do not resuscitate) Current Visit: No Status: Acute
[2018-09-09] MEDS: Enoxaparin(*) 40 MG/0.4 ML SYR SUBCUT SCH (17:48)
[2018-09-10] MEDS: oxyCODONE/Acetamin 5/325 MG* TAB PO PRN ×3 (10:37→21:14)
[2018-09-10] MEDS: Lactobacillus Acidophilus* 1 TAB PO SCH (10:37)
[2018-09-10] MEDS ORDERED: Furosemide TAB* 40 MG PO ONE (12:05)
--- NOTE | 2018-09-10 12:05 | PN ---
Subjective Date of Service: 09/10/18 Interval History: MRI shows acute on chronic compression fracture of T9. Also pleural effusions. Old TTE with diastolic dysfunction. Offered patient furosemide for HFpEF - pt reports she wasn't aware and that she has been experiencing SOB and that she is bothered by her LE edema. Pain is well controlled. Still no BM. Will utilize bowel regimen. Slept well last night. Objective Active Medications: Acetaminophen (Tylenol Tab*) 975 mg PO Q8H PRN PRN Reason: FEVER/PAIN Last Admin: 09/09/18 06:10 Dose: 975 mg Cyclobenzaprine HCl (Flexeril Tab*) 10 mg PO TID PRN PRN Reason: SPASMS Last Admin: 09/09/18 11:21 Dose: 10 mg Enoxaparin Sodium (Lovenox(*)) 40 mg SUBCUT Q24H ZELDA Last Admin: 09/09/18 17:48 Dose: Not Given Glycerin (Glycerin Adult Supp*) 1 supp UT DAILY PRN PRN Reason: CONSTIPATION Hydralazine HCl (Apresoline Iv*) 5 mg IV SLOW PU Q6H PRN PRN Reason: Systolic Bp Greater Than: 160 Last Admin: 09/08/18 18:59 Dose: 5 mg Lactobacillus Rhamnosus (Lactobacillus Acidophilus*) 1 tab PO DAILY ZELDA Last Admin: 09/10/18 10:37 Dose: 1 tab Lorazepam (Ativan Inj*) 0.5 mg IV PUSH ONCE PRN PRN Reason: prior to MRI Last Admin: 09/09/18 18:46 Dose: 0.5 mg Miscellaneous (Ativan Pyxis Spence) 1 ea N/A .ATIVAN IV SPENCE PRN PRN Reason: PYXIS SPENCE Morphine Sulfate (Morphine Inj (Syringe))*) 2 mg IV Q4H PRN PRN Reason: PAIN - MILD Last Admin: 09/09/18 18:39 Dose: 2 mg Ondansetron HCl (Zofran Inj*) 4 mg IV Q4H PRN PRN Reason: NAUSEA/VOMITING Oxycodone/Acetaminophen (Percocet 5/325 Tab*) 1 tab PO Q4H PRN PRN Reason: Pain Last Admin: 09/10/18 10:37 Dose: 1 tab Polyethylene Glycol/Electrolytes (Miralax*) 17 gm PO DAILY PRN PRN Reason: CONSTIPATION Senna (Senokot Tab*) 1 tab PO BEDTIME PRN PRN Reason: if no BM during day Vital Signs - 8 hr 09/10/18 10:37 Respiratory 18 Rate Oxygen Devices in Use Now: None Appearance: elderly woman in NAD, frail; interactive and alert Ears/Nose/Mouth/Throat: Clear Oropharnyx, Mucous Membranes Moist Neck: NL Appearance and Movements; NL JVP Respiratory: Symmetrical Chest Expansion and Respiratory Effort, Clear to Auscultation - anteriorly Cardiovascular: RRR Abdominal: NL Sounds; No Tenderness; No Distention, No Hepatosplenomegaly Extremities: - - 1+ edema to knees Skin: No Rash or Ulcers Neurological: Alert and Oriented x 3, NL Sensation Result Diagrams: 09/09/18 05:23 09/08/18 14:23 Assess/Plan/Problems-Billing Assessment: 88W with T8-L1 compression fractures, scoliosis, HFpEF, frequent UTIs and incontinence, presents with worsening back pain and leg weakness, found acute on chronic fracture of T9. Pending NSGY recs. - Patient Problems (1) Thoracic compression fracture Comment: Acute on chronic seen on MRI. - pain control with APAP RTC, Percocet for moderate pain, IV morphine for severe pain - bowel regimen - appreciate NSGY recs (2) Heart failure with preserved ejection fraction Comment: Seen on echo in 2013, with LE edema and pulmonary effusions. Pt reporting SOB and is bothered by LE edema - initiate furosemide, monitor BPs and lytes (3) DVT prophylaxis Comment: Lovenox (4) DNR (do not resuscitate) Current Visit: No Status: Acute
[2018-09-10] MEDS: Polyethylene Glycol 3350* 17 GM PACKET PO PRN (15:00)
[2018-09-10] MEDS: Glycerin ADULT SUPP PR PRN (15:00)
[2018-09-10] MEDS: Enoxaparin(*) 40 MG/0.4 ML SYR SUBCUT SCH (15:24)
--- NOTE | 2018-09-10 16:22 | PN ---
Progress Note - Progress Note Date of Service: 09/10/18 SOAP: Subjective: 88 y/o female with hx of osteoporosis c/o acute axial low back pain x 1 week 2/ 2 to pathologic fractures. As recommended she completed MRI scan of T and L spine, which demonstrated acute on chronic T9 compression fracture. Assessment: 88 y/o female with acute on chronic T9 compression fracture with ligamentous damage, patient neurologically intact. Plan: Spoke with patient with partner and friend at bed side, we discussed treatment. Patient would prefer to treat fracture conservatively. She Yogesh brace a bed side from previous compression fracture. We recommend PT she attempt wearing this brace and see if she tolerate standing and walking with brace, if not have her fitted for TLSO brace. If tolerates either brace, get standing X rays AP/ Lateral in brace, we will follow up with patient in outpatient clinic.
[2018-09-11 06:28] LABS: BUN/Creatinine Ratio 21.6 (8-20); Calcium 9.2 mg/dL (8.6-10.3); EGFR African American 89.6 (>60); EGFR Non-African American 74.1 (>60); Magnesium 1.8 mg/dL (1.9-2.7); Potassium 3.7 mmol/L (3.5-5.0)
[2018-09-11] MEDS ORDERED: Potassium Chloride* LIQUID 20 MEQ/15 ML UDC PO ONE (07:55)
[2018-09-11] MEDS ORDERED: Magnesium Sulfate 1 GM IV* 1 GM/100 ML BAG IV ONE (07:55)
--- NOTE | 2018-09-11 08:03 | PN ---
Subjective Date of Service: 09/11/18 Interval History: BPs stable after starting furosemide yesterday. NSGY, patient, and her family decided to pursue conservative treatment with brace. If patient able to tolerate her home brace, she will work with PT. Otherwise will need fitting with TLSO brace for PT assessment and possible STR placement. Pt with good pain control while at rest. Denies SOB or dysuria. Objective Active Medications: Acetaminophen (Tylenol Tab*) 975 mg PO Q8H PRN PRN Reason: FEVER/PAIN Last Admin: 09/11/18 09:05 Dose: 975 mg Cyclobenzaprine HCl (Flexeril Tab*) 10 mg PO TID PRN PRN Reason: SPASMS Last Admin: 09/09/18 11:21 Dose: 10 mg Enoxaparin Sodium (Lovenox(*)) 40 mg SUBCUT Q24H ZELDA Last Admin: 09/10/18 15:24 Dose: 40 mg Furosemide (Lasix Tab*) 40 mg PO DAILY ZELDA Last Admin: 09/11/18 09:06 Dose: 40 mg Glycerin (Glycerin Adult Supp*) 1 supp NC DAILY PRN PRN Reason: CONSTIPATION Last Admin: 09/10/18 15:00 Dose: 1 supp Lactobacillus Rhamnosus (Lactobacillus Acidophilus*) 1 tab PO DAILY ZELDA Last Admin: 09/11/18 09:06 Dose: 1 tab Morphine Sulfate (Morphine Inj (Syringe))*) 2 mg IV Q4H PRN PRN Reason: PAIN - MILD Last Admin: 09/09/18 18:39 Dose: 2 mg Ondansetron HCl (Zofran Inj*) 4 mg IV Q4H PRN PRN Reason: NAUSEA/VOMITING Oxycodone/Acetaminophen (Percocet 5/325 Tab*) 1 tab PO Q4H PRN PRN Reason: Pain Last Admin: 09/11/18 11:04 Dose: 1 tab Polyethylene Glycol/Electrolytes (Miralax*) 17 gm PO DAILY PRN PRN Reason: CONSTIPATION Last Admin: 09/10/18 15:00 Dose: 17 gm Senna (Senokot Tab*) 1 tab PO BEDTIME PRN PRN Reason: if no BM during day Vital Signs - 8 hr 09/11/18 04:04 Temperature 97.7 F Pulse Rate 78 Respiratory 18 Rate Blood Pressure 117/67 (mmHg) O2 Sat by Pulse 95 Oximetry Oxygen Devices in Use Now: None Appearance: frail appearing elderly woman in NAD Eyes: No Scleral Icterus Ears/Nose/Mouth/Throat: Clear Oropharnyx, Mucous Membranes Moist Neck: NL Appearance and Movements; NL JVP, Trachea Midline Respiratory: Clear to Auscultation - anteriorly Cardiovascular: NL Sounds; No Murmurs; No JVD, RRR Abdominal: NL Sounds; No Tenderness; No Distention, No Hepatosplenomegaly Extremities: - - 1+ edema improved over LEs, now mostly around ankles, post- diuresis wrinkling Neurological: Alert and Oriented x 3, - - hip flexion 4/5 b/l Result Diagrams: 09/09/18 05:23 09/11/18 05:31 Assess/Plan/Problems-Billing Assessment: 88W with T8-L1 compression fractures, scoliosis, HFpEF, frequent UTIs and incontinence, presents with worsening back pain and leg weakness, found with acute on chronic fracture of T9. Pending brace fitting and PT eval for discharge planning. - Patient Problems (1) Thoracic compression fracture Comment: Acute on chronic seen on MRI. - pt to wear brace and work with PT - if she cannot tolerate her home brace, she will need to be fitted for TLSO brace - pain control with APAP RTC, Percocet for moderate pain, IV morphine for severe pain - bowel regimen - appreciate NSGY recs (2) Heart failure with preserved ejection fraction Comment: Seen on echo in 2013, with LE edema and pulmonary effusions. Pt reporting SOB and is bothered by LE edema - cont furosemide PO, monitor BPs and lytes (3) DVT prophylaxis Comment: Lovenox (4) DNR (do not resuscitate) Current Visit: No Status: Acute
[2018-09-11] MEDS ORDERED: Senna TAB PO ONE (08:05)
[2018-09-11] MEDS ORDERED: Furosemide TAB* 40 MG PO SCH (09:00)
[2018-09-11] MEDS: Acetaminophen TAB* 325 MG PO PRN (09:05)
[2018-09-11] MEDS: Lactobacillus Acidophilus* 1 TAB PO SCH (09:06)
[2018-09-11] MEDS: oxyCODONE/Acetamin 5/325 MG* TAB PO PRN ×3 (11:04→18:35)
[2018-09-11] MEDS: Enoxaparin(*) 40 MG/0.4 ML SYR SUBCUT SCH (14:31)
[2018-09-11] MEDS: Polyethylene Glycol 3350* 17 GM PACKET PO PRN (17:51)
[2018-09-11] MEDS: Senna TAB PO PRN (22:46)
[2018-09-11] MEDS: Glycerin ADULT SUPP PR PRN (22:49)
[2018-09-12 06:18] LABS: BUN/Creatinine Ratio 21.4 (8-20); Calcium 9.3 mg/dL (8.6-10.3); EGFR African American 123.6 (>60); EGFR Non-African American 102.2 (>60); Magnesium 1.9 mg/dL (1.9-2.7); Potassium 3.8 mmol/L (3.5-5.0)
[2018-09-12] MEDS ORDERED: Potassium Chloride* LIQUID 20 MEQ/15 ML UDC PO ONE (08:01)
[2018-09-12] MEDS ORDERED: Magnesium Sulfate 1 GM IV* 1 GM/100 ML BAG IV ONE (08:01)
[2018-09-12] MEDS: Furosemide TAB* 40 MG PO SCH (08:36)
[2018-09-12] MEDS: Lactobacillus Acidophilus* 1 TAB PO SCH (08:37)
[2018-09-12] MEDS: Polyethylene Glycol 3350* 17 GM PACKET PO PRN (08:41)
[2018-09-12] MEDS: oxyCODONE/Acetamin 5/325 MG* TAB PO PRN (13:00)
--- NOTE | 2018-09-12 15:20 | PN ---
Progress Note - Progress Note Date of Service: 09/12/18 Note: 88 y/o female with acute on chronic T9 compression fracture. Patient attempted to use brace from that she was give from last episode of compression fractures. The brace did not fit appropriately. She completed only the AP view in the brace , which will does give the proper view to evaluate the alignment. I spoke with Dr. Ramírez, who informed me that another brace has been ordered. Another attempt will be made to fit patient, if she able to tolerate and stand with this brace, we recommend repeat standing AP and Lateral of the thoracic spine. If patient is unable to tolerate the second brace will consider bed rest and have patient stand as tolerated.
[2018-09-12] MEDS: Enoxaparin(*) 40 MG/0.4 ML SYR SUBCUT SCH (16:56)
--- NOTE | 2018-09-12 17:20 | PN ---
Subjective Date of Service: 09/12/18 Interval History: Pt very happy with furosemide and happy to have water off lungs/legs. Pt very unhappy with experience getting xray yesterday - states she needed more assistance when standing with brace. Had BM overnight and again this AM. Pt again unable to tolerate brace from home - thought it was choking her. Pending new brace fitting today, and will need repeat xray. Objective Active Medications: Acetaminophen (Tylenol Tab*) 975 mg PO Q8H PRN PRN Reason: FEVER/PAIN Last Admin: 09/11/18 09:05 Dose: 975 mg Cyclobenzaprine HCl (Flexeril Tab*) 10 mg PO TID PRN PRN Reason: SPASMS Last Admin: 09/09/18 11:21 Dose: 10 mg Enoxaparin Sodium (Lovenox(*)) 40 mg SUBCUT Q24H ZELDA Last Admin: 09/12/18 16:56 Dose: 40 mg Furosemide (Lasix Tab*) 20 mg PO DAILY ZELDA Last Admin: 09/12/18 08:36 Dose: 20 mg Glycerin (Glycerin Adult Supp*) 1 supp [place] DAILY PRN PRN Reason: CONSTIPATION Last Admin: 09/11/18 22:49 Dose: 1 supp Lactobacillus Rhamnosus (Lactobacillus Acidophilus*) 1 tab PO DAILY ZELDA Last Admin: 09/12/18 08:37 Dose: 1 tab Ondansetron HCl (Zofran Inj*) 4 mg IV Q4H PRN PRN Reason: NAUSEA/VOMITING Last Admin: 09/12/18 11:48 Dose: 4 mg Oxycodone/Acetaminophen (Percocet 5/325 Tab*) 1 tab PO Q4H PRN PRN Reason: Pain Last Admin: 09/12/18 13:00 Dose: 1 tab Polyethylene Glycol/Electrolytes (Miralax*) 17 gm PO DAILY PRN PRN Reason: CONSTIPATION Last Admin: 09/12/18 08:41 Dose: 17 gm Senna (Senokot Tab*) 1 tab PO BEDTIME PRN PRN Reason: if no BM during day Last Admin: 09/11/18 22:46 Dose: 1 tab Vital Signs - 8 hr 09/12/18 09/12/18 09/12/18 11:00 13:00 14:48 Temperature 98.2 F Pulse Rate 83 Respiratory 16 18 18 Rate Blood Pressure 143/85 (mmHg) O2 Sat by Pulse 98 Oximetry 09/12/18 15:00 Temperature 97.9 F Pulse Rate 105 Respiratory 16 Rate Blood Pressure 121/69 (mmHg) O2 Sat by Pulse 97 Oximetry Oxygen Devices in Use Now: None Result Diagrams: 09/09/18 05:23 09/12/18 05:31 Assess/Plan/Problems-Billing Assessment: 88W with T8-L1 compression fractures, scoliosis, HFpEF, frequent UTIs and incontinence, presents with worsening back pain and leg weakness, found with acute on chronic fracture of T9. Pending brace fitting and PT eval for discharge planning. - Patient Problems (1) Thoracic compression fracture Comment: Acute on chronic seen on MRI. - pt to wear brace and work with PT - if she cannot tolerate her home brace, she will need to be fitted for TLSO brace - pain control with APAP for mild, Percocet for moderate-severe pain - bowel regimen - appreciate NSGY recs - refer to bone health clinic (Dr. Emily Rodriguez) on DC; consider bisphosphonate (possibly IV if unable to sit upright) (2) Heart failure with preserved ejection fraction Comment: Seen on echo in 2013, with LE edema and pulmonary effusions. Pt reporting SOB and is bothered by LE edema - cont furosemide PO, monitor BPs and lytes (3) DVT prophylaxis Comment: Lovenox (4) DNR (do not resuscitate) Current Visit: No Status: Acute
[2018-09-13] MEDS: oxyCODONE/Acetamin 5/325 MG* TAB PO PRN ×3 (01:09→21:40)
[2018-09-13 07:13] LABS: BUN/Creatinine Ratio 16.7 (8-20); Calcium 9.2 mg/dL (8.6-10.3); EGFR African American 102.3 (>60); EGFR Non-African American 84.5 (>60); Potassium 4.3 mmol/L (3.5-5.0)
[2018-09-13] MEDS: Lactobacillus Acidophilus* 1 TAB PO SCH (08:48)
[2018-09-13] MEDS: Furosemide TAB* 40 MG PO SCH (08:48)
--- NOTE | 2018-09-13 12:31 | PN ---
Subjective Date of Service: 09/13/18 - Subjective Subjective: Patient received new brace, she has been able tolerate and has completed new standing X rays that demonstrates appropriate alignment. Neurosurgery recommends patient wears brace when she is out of bed, also medical management of osteoporosis. From neurosurgery stand point patient is able to do go home pending medicine recommendations. It's recommended that she follows up with neurosurgery in outpatient clinic. Weight: 108 lb 3.2 oz Medication Orders: Current Medications Acetaminophen (Tylenol Tab*) 975 mg PO Q8H PRN PRN Reason: FEVER/PAIN Last Admin: 09/11/18 09:05 Dose: 975 mg Cyclobenzaprine HCl (Flexeril Tab*) 10 mg PO TID PRN PRN Reason: SPASMS Last Admin: 09/09/18 11:21 Dose: 10 mg Enoxaparin Sodium (Lovenox(*)) 40 mg SUBCUT Q24H ZELDA Last Admin: 09/12/18 16:56 Dose: 40 mg Furosemide (Lasix Tab*) 20 mg PO DAILY ZELDA Last Admin: 09/13/18 08:48 Dose: 20 mg Glycerin (Glycerin Adult Supp*) 1 supp [place] DAILY PRN PRN Reason: CONSTIPATION Last Admin: 09/11/18 22:49 Dose: 1 supp Lactobacillus Rhamnosus (Lactobacillus Acidophilus*) 1 tab PO DAILY ZELDA Last Admin: 09/13/18 08:48 Dose: 1 tab Ondansetron HCl (Zofran Inj*) 4 mg IV Q4H PRN PRN Reason: NAUSEA/VOMITING Last Admin: 09/12/18 11:48 Dose: 4 mg Oxycodone/Acetaminophen (Percocet 5/325 Tab*) 1 tab PO Q4H PRN PRN Reason: Pain Last Admin: 09/13/18 08:48 Dose: 1 tab Polyethylene Glycol/Electrolytes (Miralax*) 17 gm PO DAILY PRN PRN Reason: CONSTIPATION Last Admin: 09/12/18 08:41 Dose: 17 gm Senna (Senokot Tab*) 1 tab PO BEDTIME PRN PRN Reason: if no BM during day Last Admin: 09/11/18 22:46 Dose: 1 tab Home Medications: Home Medications Medication Instructions Recorded Confirmed Type Ascorbic Acid TAB* [Vitamin C 500 mg PO DAILY 09/01/17 09/08/18 History TAB*] Vitamin E CAP* 400 unit PO BID 09/01/17 09/08/18 History Arnica Flower Extract [Arnica Lg] 1 liq PO DAILY PRN 09/08/18 09/08/18 History Bisacodyl SUPP* [Dulcolax Supp*] 10 mg [place] DAILY PRN 09/08/18 09/08/18 History Caprum Metalicum 1 tab PO DAILY 09/08/18 09/08/18 History Cholecalciferol (Vitamin D3) 10 unit PO DAILY 09/08/18 09/08/18 History [[place] Vitamin D3] Cranberry Fruit [Cranberry] 450 mg PO DAILY 09/08/18 09/08/18 History Diclofenac 1% GEL (NF) [Voltaren 1 applic TOPICAL QID PRN 09/08/18 09/08/18 History 1% GEL (NF)] L. Acidophilus/Pectin, [place] 1 cap PO DAILY 09/08/18 09/08/18 History [Acidophilus Capsule] Lecithin, Soy [Lecithin] 1,200 mg PO BID 09/08/18 09/08/18 History Senna TAB* [Senokot TAB*] 1 tab PO DAILY PRN 09/08/18 09/08/18 History Tetrahydrozoline HCl [Eye Drops] 0.05 % BOTH EYES DAILY PRN 09/08/18 09/08/18 History Zygest 1 cap PO TID 09/08/18 09/08/18 History guaiFENesin [Cough Syrup] 10 ml PO QID PRN 09/08/18 09/08/18 History traMADol TAB* [Ultram*] 50 mg PO Q6HR PRN 09/08/18 09/08/18 History Results/Investigations Lab Results: 09/11/18 09/12/18 09/13/18 05:31 05:31 06:24 Sodium 138 134 L 137 Potassium 3.7 3.8 4.3 Chloride 105 101 105 Carbon Dioxide 28 26 27 Anion Gap 5 7 5 BUN 16 12 11 Creatinine 0.74 0.56 0.66 Est GFR ( Amer) 89.6 123.6 102.3 Est GFR (Non-Af Amer) 74.1 102.2 84.5 BUN/Creatinine Ratio 21.6 H 21.4 H 16.7 Glucose 94 100 98 Calcium 9.2 9.3 9.2 Magnesium 1.8 L 1.9 2.0 Vitals Vital Signs: Vital Signs 09/12/18 09/12/18 09/12/18 13:00 14:48 15:00 Temperature 97.9 F Pulse Rate 105 Respiratory 18 18 16 Rate Blood Pressure 121/69 (mmHg) O2 Sat by Pulse 97 Oximetry 09/12/18 09/12/18 09/13/18 20:11 20:14 00:02 Temperature 97.8 F Pulse Rate 71 Respiratory 16 16 18 Rate Blood Pressure 135/64 (mmHg) O2 Sat by Pulse 97 Oximetry 09/13/18 09/13/18 09/13/18 01:09 03:47 04:09 Temperature 98.1 F Pulse Rate 68 Respiratory 16 16 16 Rate Blood Pressure 127/68 (mmHg) O2 Sat by Pulse 99 Oximetry 09/13/18 09/13/18 09/13/18 07:00 08:00 08:48 Temperature 97.8 F Pulse Rate 69 Respiratory 18 14 14 Rate Blood Pressure 129/62 (mmHg) O2 Sat by Pulse 98 Oximetry 09/13/18 11:00 Temperature 97.4 F Pulse Rate 70 Respiratory 16 Rate Blood Pressure 149/76 (mmHg) O2 Sat by Pulse 95 Oximetry Patient Problems: Patient Problems Problem Status Onset Code DVT prophylaxis Acute [id number] Heart failure with preserved ejection fraction Acute I50.30 Lumbar compression fracture Acute S32.000A Thoracic compression fracture Acute S22.000A DNR (do not resuscitate) Acute Dizziness Acute 01/14/14 R42 Fall Acute Malnutrition Acute E46 Metabolic acidosis Acute E87.2 Nausea Acute R11.0 UTI (urinary tract infection) Acute Vasovagal syncope Acute R55
--- NOTE | 2018-09-13 15:44 | PN ---
Subjective Date of Service: 09/13/18 Interval History: Patient is feeling well today. She endorses low back pain but feels it is well controlled. She has urinary incontinence at baseline. She endorses bilateral LE weakness which is unchanged. Denies loss of bowel function. Denies difficulty breathing, chest pain, numbness/tingling in lower extremities. New brace was fit today and patient feels it is comfortable. Objective Active Medications: Acetaminophen (Tylenol Tab*) 975 mg PO Q8H PRN PRN Reason: FEVER/PAIN Last Admin: 09/11/18 09:05 Dose: 975 mg Cyclobenzaprine HCl (Flexeril Tab*) 10 mg PO TID PRN PRN Reason: SPASMS Last Admin: 09/09/18 11:21 Dose: 10 mg Enoxaparin Sodium (Lovenox(*)) 40 mg SUBCUT Q24H ZELDA Last Admin: 09/12/18 16:56 Dose: 40 mg Furosemide (Lasix Tab*) 20 mg PO DAILY [facility] Last Admin: 09/13/18 08:48 Dose: 20 mg Glycerin (Glycerin Adult Supp*) 1 supp [place] DAILY PRN PRN Reason: CONSTIPATION Last Admin: 09/11/18 22:49 Dose: 1 supp Lactobacillus Rhamnosus (Lactobacillus Acidophilus*) 1 tab PO DAILY ZELDA Last Admin: 09/13/18 08:48 Dose: 1 tab Ondansetron HCl (Zofran Inj*) 4 mg IV Q4H PRN PRN Reason: NAUSEA/VOMITING Last Admin: 09/12/18 11:48 Dose: 4 mg Oxycodone/Acetaminophen (Percocet 5/325 Tab*) 1 tab PO Q4H PRN PRN Reason: Pain Last Admin: 09/13/18 08:48 Dose: 1 tab Polyethylene Glycol/Electrolytes (Miralax*) 17 gm PO DAILY PRN PRN Reason: CONSTIPATION Last Admin: 09/12/18 08:41 Dose: 17 gm Senna (Senokot Tab*) 1 tab PO BEDTIME PRN PRN Reason: if no BM during day Last Admin: 09/11/18 22:46 Dose: 1 tab Vital Signs - 8 hr 09/13/18 09/13/18 09/13/18 08:00 08:48 11:00 Temperature 97.4 F Pulse Rate 70 Respiratory 14 14 16 Rate Blood Pressure 149/76 (mmHg) O2 Sat by Pulse 95 Oximetry 09/13/18 12:36 Temperature Pulse Rate Respiratory 18 Rate Blood Pressure (mmHg) O2 Sat by Pulse Oximetry Oxygen Devices in Use Now: None Appearance: Thin, elderly white female laying in hospital bed appearing in NAD Eyes: No Scleral Icterus, PERRLA Ears/Nose/Mouth/Throat: Mucous Membranes Moist Neck: NL Appearance and Movements; NL JVP Respiratory: Symmetrical Chest Expansion and Respiratory Effort, Clear to Auscultation Cardiovascular: NL Sounds; No Murmurs; No JVD, RRR Abdominal: NL Sounds; No Tenderness; No Distention Extremities: No Edema, No Clubbing, Cyanosis Skin: No Rash or Ulcers Neurological: Alert and Oriented x 3, NL Sensation, NL Muscle Strength and Tone Result Diagrams: 09/09/18 05:23 09/13/18 06:24 Assess/Plan/Problems-Billing Assessment: 88W with T8-L1 compression fractures, scoliosis, HFpEF, frequent UTIs and incontinence, presents with worsening back pain and leg weakness, found with acute on chronic fracture of T9. - Patient Problems (1) Thoracic compression fracture Current Visit: Yes Status: Acute Code(s): S22.000A - WEDGE COMPRESSION FRACTURE OF UNSP THORACIC VERTEBRA, INIT SNOMED Code(s): 119612466 Comment: - Acute on chronic seen on MRI - pt fitted for TLSO brace today and found tolerable; x-ray confirmed appropriate alignment - Neurosurgery recommends osteoporosis therapy and patient must wear brace when sitting upright over 45 degrees; follow up with NSGY in 1 month - refer to bone health clinic (Dr. Emily Rodriguez) on DC - oral bisphosphonates are not formulary here, will recommend on discharge to [facility] accepting provider - continue pain control with APAP for mild, Percocet for moderate-severe pain - bowel regimen - PT recommends [facility], pending placement (2) Heart failure with preserved ejection fraction Current Visit: Yes Status: Acute Code(s): I50.30 - UNSPECIFIED DIASTOLIC ( CONGESTIVE) HEART FAILURE SNOMED Code(s): 612064374 Comment: - seen on echo in 2013 - SOB and LE edema resolved - cont furosemide PO, monitor BPs and lytes (3) DVT prophylaxis Current Visit: Yes Status: Acute Code(s): HEP9756 - SNOMED Code(s): 572992859 Comment: Lovenox (4) DNR (do not resuscitate) Current Visit: No Status: Acute Status and Disposition: pending [facility] placement
[2018-09-13] MEDS: Enoxaparin(*) 40 MG/0.4 ML SYR SUBCUT SCH (17:18)
[2018-09-13] MEDS: Senna TAB PO PRN (21:31)
[2018-09-13] MEDS: Polyethylene Glycol 3350* 17 GM PACKET PO PRN (21:31)
[2018-09-14] MEDS: Furosemide TAB* 40 MG PO SCH (08:46)
[2018-09-14] MEDS: Lactobacillus Acidophilus* 1 TAB PO SCH (08:46)
[2018-09-14 12:04] VITALS: BP 127/88
--- NOTE | 2018-09-14 12:14 | DS ---
CC: MIRZA Welch * DATE OF ADMISSION: 09/08/2018. DATE OF DISCHARGE: 09/14/2018. ATTENDING PHYSICIAN WHILE IN THE HOSPITAL: Dr. Padma Gomez * (dictated by MIRZA Crump). PRIMARY CARE PHYSICIAN: MIRZA Welch. PRIMARY DIAGNOSES: 1. T8 compression fracture. 2. Worsening of T9 compression fracture. SECONDARY DIAGNOSES: 1. History of urinary incontinence, history of frequent UTI's. 2. Osteoarthritis. 3. History of vertigo. 4. Scoliosis. 5. Heart failure with preserved ejection fraction. STUDIES WHILE IN THE HOSPITAL: 1. Thoracic spine CT and lumbar spine CT on 09/08/2018 demonstrates osteopenia. Compression deformities of T8 and T9, progressed from the 2017 CT examination. Stable compression deformity of L1. There is no significant osseous retropulsion. Degenerative disc disease and osteoarthritis. Small bilateral pleural effusions. 2. Thoracic spine x-ray on 09/13/2018: Compression fracture of T8 and T9 overall unchanged from prior exam which demonstrated proper alignment while wearing a brace. PERTINENT LABORATORY DATA: PTH 22.1, vitamin D 40, calcium 10.4 on date of admission. HISTORY OF PRESENT ILLNESS/HOSPITAL COURSE: Therese Black is an 88-year-old white female who presented to the emergency department on 09/08/2018 due to intractable back pain. She had been taking Tramadol for several weeks from her primary care provider and was not receiving relief. She was found to have a new T8 compression fracture and worsening T9 compression fracture. During her hospital stay, she was seen by the neurosurgical team and conservative management was recommended after thoracic and lumbar spine MRI's. She tried a [place] brace which was uncomfortable and lateral was fitted for a TLSO brace which was tolerated and had good alignment. She was seen by Physical Therapy who recommended subacute rehab after her hospitalization. During her hospital stay, she continued to have back pain, but was found to be controlled with Percocet prn. Additionally, she had chronic lower extremity edema and had good relief with oral Lasix which was initiated during this stay. On the date of discharge, the patient is feeling well and has no new complaints. Her back pain is well-controlled. She denies change in weakness of the lower extremities. She denies numbness of extremities, fever, chills, shortness of breath, or chest pain. PHYSICAL EXAMINATION: General: Thin, elderly white female, lying in the hospital bed appearing in no acute distress. HEENT: Head normocephalic, atraumatic. Eyes: PERRLA. Sclerae anicteric. Mucus membranes moist. Neck: Supple without JVD. Cardio: Regular rate and rhythm without murmurs, rubs, or gallops. Lungs: Clear to auscultation throughout. Abdomen: Soft, nontender, nondistended. Extremities: No clubbing, cyanosis, or edema. Neuro: No focal deficits. Patient oriented times three. DISCHARGE PLAN: DIET: Regular unrestricted diet. ACTIVITY: Patient is to continue using the TLSO brace. She may only sit upright further than 45 degrees if she is wearing this brace. She should absolutely be wearing it while standing. She should have a follow-up with Dr. Martinez in one month. It additionally may benefit her to have a follow-up with bone health specialist, Dr. Rodriguez. The neurosurgical team recommended starting treatment of her osteoporosis and because bisphosphonate are not on formulary, this was not started during her hospital stay and it is recommended that this be considered by the admitting physician at [facility]. DISCHARGE MEDICATIONS: 1. Acetaminophen 975 p.o. q.8 hours prn pain. 2. Flexeril 10 mg p.o. t.i.d. prn muscle spasms. 3. Lasix 20 mg p.o. daily. 4. Lactobacillus acidophilus one capsule daily. 5. Oxycodone/acetaminophen 5/325 one tab p.o. q.4 hours prn severe pain. 6. MiraLax 17 gm p.o. daily prn constipation. 7. Senna one tab p.o. at bedtime prn constipation. 8. Arnica Flower extract 1 gm liquid p.o. daily. 9. Ascorbic acid 500 mg p.o. daily. 10. Bisacodyl suppository 10 mg/rectum prn severe constipation. 11. Cuprum Metallicum one tab p.o. daily. 12. Vitamin D3 10 units p.o. daily. 13. Cranberry 450 mg p.o. daily. 14. Guaifenesin 100 mg/10 ml p.o. q.i.d. prn cough. 15. Soy Lecithin 1200 mg p.o. b.i.d. 16. Tetrahydrozoline eye drops 0.05% both eyes daily prn dry eye. 17. Vitamin E 400 mg p.o. daily. 18. Zygest one cap p.o. t.i.d. CONDITION ON DISCHARGE: Stable. DISPOSITION: Lauren Mcgrath. TIME SPENT: Approximately 40 minutes were spent on this discharge, approximately half of that was spent at the bedside. MIRZA CRUMP [id number]/[facility] #: [id number] MTDRichie
[2018-09-14] MEDS: oxyCODONE/Acetamin 5/325 MG* TAB PO PRN (12:25)
== END 2018-09-14 13:45 | DRG 544 ==
LOC: ED 13:30 → MED 15:54 → OBSVTOIN 09-09 16:00
PROVIDERS: ADMIT Internal Medicine; ATTEND Internal Medicine
DX: M48.54XA Collapsed vertebra, not elsewhere classified, thoracic region, initial encounter for fracture (principal); M19.90 Unspecified osteoarthritis, unspecified site; M41.9 Scoliosis, unspecified; I50.9 Heart failure, unspecified; R60.0 Localized edema; M81.0 Age-related osteoporosis without current pathological fracture; R32 Unspecified urinary incontinence; I11.0 Hypertensive heart disease with heart failure; E83.52 Hypercalcemia; Z66 Do not resuscitate; F03.90 Unspecified dementia, unspecified severity, without behavioral disturbance, psychotic disturbance, mood disturbance, and anxiety; Z87.891 Personal history of nicotine dependence; Z87.440 Personal history of urinary (tract) infections; Z79.899 Other long term (current) drug therapy; Z88.0 Allergy status to penicillin; Z82.49 Family history of ischemic heart disease and other diseases of the circulatory system
CPT/HCPCS: 36415; 72070; 72080; 72100; 72128; 72131; 72146; 72148; 80048; 80053; 81003; 82306; 83735; 83970; 85025; 86140; 99284; A9270-GY; G0378; G8978-GP-CL; G8979-GP-CI; G8987-GO-CL; G8988-GO-CI; J0360; J1650; J2060; J2270; J2405; J3475